=== PATIENT | female | born 1945 | race Caucasian/White ===

== ENCOUNTER 2018-03-31 12:05 | Outpatient (RCR) | payer SELFPAY | END 2018-04-03 23:59 | disposition home or self-care (01) | LOC: CR 12:05 | PROVIDERS: PCP Physician Assistant Medical; Visit Provider Family Medicine | DX: Z51.89 Encounter for other specified aftercare (principal) ==

== ENCOUNTER 2018-04-30 10:00 | Outpatient (RCR) | payer SELFPAY | END 2018-05-03 23:59 | disposition home or self-care (01) | LOC: CR 10:00 | PROVIDERS: PCP Physician Assistant Medical; Visit Provider Family Medicine | DX: Z51.89 Encounter for other specified aftercare (principal) ==

== ENCOUNTER 2018-06-02 10:00 | Outpatient (RCR) | payer SELFPAY | END 2018-06-03 23:59 | disposition home or self-care (01) | LOC: CR 10:00 | PROVIDERS: PCP Physician Assistant Medical; Visit Provider Family Medicine | DX: Z51.89 Encounter for other specified aftercare (principal) ==

== ENCOUNTER → 2018-06-09 10:55 | Outpatient (BNVA) | payer MEDICARE, OTHER, SELFPAY | PROVIDERS: PCP Physician Assistant Medical; Visit Provider Nurse Practitioner Family | DX: I48.91 Unspecified atrial fibrillation (principal); Z45.09 Encounter for adjustment and management of other cardiac device; Z95.3 Presence of xenogenic heart valve; I10 Essential (primary) hypertension; G47.33 Obstructive sleep apnea (adult) (pediatric); E78.5 Hyperlipidemia, unspecified | CPT/HCPCS: 93291; 99213 ==

== ENCOUNTER 2018-07-02 10:00 | Outpatient (RCR) | payer SELFPAY | END 2018-07-03 23:59 | disposition home or self-care (01) | LOC: CR 10:00 | PROVIDERS: PCP Physician Assistant Medical; Visit Provider Family Medicine | DX: Z51.89 Encounter for other specified aftercare (principal) ==

== ENCOUNTER 2018-07-23 10:00 | Outpatient (RCR) | payer SELFPAY | END 2018-08-03 23:59 | disposition home or self-care (01) | LOC: CR 10:00 | PROVIDERS: PCP Physician Assistant Medical; Visit Provider Family Medicine | DX: Z51.89 Encounter for other specified aftercare (principal) ==

== ENCOUNTER 2018-08-25 10:00 | Outpatient (RCR) | payer SELFPAY | END 2018-09-03 23:59 | disposition home or self-care (01) | LOC: CR 10:00 | PROVIDERS: PCP Physician Assistant Medical; Visit Provider Family Medicine | DX: Z51.89 Encounter for other specified aftercare (principal) ==

== ENCOUNTER → 2018-09-22 11:29 | Outpatient (BNVA) | payer MEDICARE, OTHER, SELFPAY | PROVIDERS: PCP Nurse Practitioner Family; Visit Provider Nurse Practitioner Family | DX: R69 Illness, unspecified (principal) ==

== ENCOUNTER 2018-09-22 12:36 | Outpatient (CLI) | payer MEDICARE, OTHER, SELFPAY ==
[2018-09-22 14:26] LABS: Anion Gap 7.3 mmol/L (3-11); BUN 21 mg/dL (7-18); CO2 29.7 mmol/L (21.0-32.0); CREATININE 1.44 mg/dL (0.55-1.02); Calcium 9.6 mg/dL (8.5-10.1); Chloride 105 mmol/L (98-107); Estimated GFR 35.88 (mL/min/1.73m2); Glucose 103 mg/dL (70-100); Magnesium 1.8 mg/dL (1.8-2.4); Potassium 5.6 mmol/L (3.5-5.1); Sodium 142 mmol/L (136-145); TSH 1.35 uIU/mL (0.358-3.74)
== END 2018-09-22 12:56 ==
PROVIDERS: PCP Nurse Practitioner Family; Visit Provider Nurse Practitioner Family
DX: I48.91 Unspecified atrial fibrillation (principal); Z95.3 Presence of xenogenic heart valve; Z95.818 Presence of other cardiac implants and grafts; I10 Essential (primary) hypertension; Z45.09 Encounter for adjustment and management of other cardiac device; E78.5 Hyperlipidemia, unspecified
CPT/HCPCS: 36415; 80048; 93291; 99214; 83735; 84443

== ENCOUNTER 2018-10-01 00:53 | Outpatient (CLI) | payer MEDICARE, OTHER, SELFPAY ==
--- NOTE | 2018-10-01 12:10 | DI.MAMMO_ITS ---
SYMPTOMS/DIAGNOSIS: SCREENING, Z12.31, [facility], Z00.00 BILATERAL SCREENING MAMMOGRAM: Mammograms were interpreted according to the usual protocol including computer analysis with CAD system, tomosynthesis and C view imaging. Comparison is made with 2009 through 2017. The breasts are composed of fatty density tissue, breast density category A. In the posterolateral right breast, there has been interval increase in size and density of a lymph node in the posterior aspect of the breast. The borders are partially obscured. An additional adjacent area of nodularity is also seen, increasing from the previous exam. There has been no change in the left breast. No suspicious calcifications are seen in either breast. IMPRESSION: Left breast category 1, negative. Right breast category 0. Spot compression views and ultrasound are requested for further evaluation of two adjacent nodules in the posterolateral right breast. [facility] ASSESSMENT OF FINDINGS: Incomplete: Needs additional imaging evaluation. Category 0. Patient will receive a letter notifying them of these results. BI-RAD category A. The breasts are almost entirely fatty.
== END 2018-10-01 01:13 ==
PROVIDERS: PCP Nurse Practitioner Family; Visit Provider Nurse Practitioner Family
DX: Z12.31 Encounter for screening mammogram for malignant neoplasm of breast (principal); R92.8 Other abnormal and inconclusive findings on diagnostic imaging of breast
CPT/HCPCS: 77063; 77067

== ENCOUNTER 2018-10-01 12:52 | Outpatient (RCR) | payer SELFPAY | END 2018-10-01 23:59 | disposition home or self-care (01) | LOC: CR 12:52 | PROVIDERS: PCP Physician Assistant Medical; Visit Provider Family Medicine | DX: Z51.89 Encounter for other specified aftercare (principal) ==

== ENCOUNTER 2018-10-06 01:18 | Outpatient (CLI) | payer MEDICARE, OTHER, SELFPAY ==
--- NOTE | 2018-10-06 11:12 | DI.COMBO_ITS ---
SYMPTOM/DIAGNOSIS: F/U MAMMO, INCREASE IN SIZE OF DENSITY, RT LYMPH NODE RIGHT BREAST ADDITIONAL VIEWS AND RIGHT BREAST ULTRASOUND: Additional images are interpreted according to the usual protocol including tomosynthesis and 2D imaging. Spot compression views with tomography were performed for an area of nodularity in the lateral right breast. There is a persistent dense nodule measuring 7 mm. in diameter. There is an adjacent nodule measuring 4 mm. which is also increased in size when compared with previous exam. The borders are not definitely well circumscribed. Right breast ultrasound shows an 8 by 5 by 8 mm., mildly lobulated, mildly heterogeneous nodule in the 8 o'clock position 6 cm. from the nipple. There is mildly increased blood flow. IMPRESSION: Category 4, suspicious mammogram and right breast ultrasound. Biopsy of the nodule in the 8 o'clock position of the right breast is recommended. The findings were called to Sandra Dow as well as discussed with the patient. [facility] ASSESSMENT OF FINDINGS: Suspicious. Biopsy should be considered. Category 4. Patient will receive a letter notifying them of these results. BI-RAD category A. The breasts are almost entirely fatty.
== END 2018-10-06 01:38 ==
PROVIDERS: PCP Nurse Practitioner Family; Visit Provider Nurse Practitioner Family
DX: Z12.31 Encounter for screening mammogram for malignant neoplasm of breast (principal); R92.8 Other abnormal and inconclusive findings on diagnostic imaging of breast; N63.13 Unspecified lump in the right breast, lower outer quadrant
CPT/HCPCS: 76642; 77063; 77067

== ENCOUNTER 2018-10-29 10:00 | Outpatient (RCR) | payer SELFPAY | END 2018-11-01 23:59 | disposition home or self-care (01) | LOC: CR 10:00 | PROVIDERS: PCP Nurse Practitioner Family; Visit Provider Family Medicine | DX: Z51.89 Encounter for other specified aftercare (principal) ==

== ENCOUNTER 2018-11-26 10:00 | Outpatient (RCR) | payer SELFPAY | END 2018-12-01 23:59 | disposition home or self-care (01) | LOC: CR 10:00 | PROVIDERS: PCP Nurse Practitioner Family; Visit Provider Family Medicine | DX: Z51.89 Encounter for other specified aftercare (principal) ==

== ENCOUNTER 2018-12-21 11:27 | Outpatient (REF) | payer MEDICARE, OTHER, SELFPAY ==
[2018-12-21 22:02] LABS: ALT 33 U/L (12-78); AST 22 U/L (15-37); Anion Gap 11.7 mmol/L (3-11); BUN 20 mg/dL (7-18); CO2 26.3 mmol/L (21.0-32.0); CREATININE 1.35 mg/dL (0.55-1.02); Chloride 106 mmol/L (98-107); Cholesterol 192 mg/dL (50-200); Estimated GFR 38.66 (mL/min/1.73m2); Glucose 113 mg/dL (70-100); HDL Cholesterol 68 mg/dL (40-60); LDL CHOLESTEROL 102 mg/dL (<100); Potassium 4.1 mmol/L (3.5-5.1); Sodium 144 mmol/L (136-145); Triglyceride 105 mg/dL (30-150)
[2018-12-21 22:16] LABS: Creatine Kinase 106 U/L (26-192)
== END 2018-12-21 11:47 ==
LOC: NCHCN 11:27
PROVIDERS: PCP Nurse Practitioner Family; Visit Provider Nurse Practitioner Family
DX: I10 Essential (primary) hypertension (principal); E78.5 Hyperlipidemia, unspecified; I48.0 Paroxysmal atrial fibrillation; D05.11 Intraductal carcinoma in situ of right breast; Z95.2 Presence of prosthetic heart valve
CPT/HCPCS: 80048; 80061; 82550; 83721; 84450; 84460

== ENCOUNTER 2018-12-31 13:33 | Outpatient (RCR) | payer SELFPAY | END 2019-01-01 23:59 | disposition home or self-care (01) | LOC: CR 13:33 | PROVIDERS: PCP Nurse Practitioner Family; Visit Provider Family Medicine | DX: Z51.89 Encounter for other specified aftercare (principal) ==

== ENCOUNTER → 2019-01-05 14:16 | Outpatient (BNVA) | payer MEDICARE, OTHER, SELFPAY | PROVIDERS: PCP Nurse Practitioner Family; Visit Provider Nurse Practitioner Family | DX: I10 Essential (primary) hypertension (principal); Z95.3 Presence of xenogenic heart valve; I48.91 Unspecified atrial fibrillation; Z45.09 Encounter for adjustment and management of other cardiac device; E78.5 Hyperlipidemia, unspecified | CPT/HCPCS: 93291; 99213 ==

== ENCOUNTER 2019-01-28 11:24 | Outpatient (RCR) | payer SELFPAY | END 2019-01-31 23:59 | disposition home or self-care (01) | LOC: CR 11:24 | PROVIDERS: PCP Nurse Practitioner Family; Visit Provider Family Medicine | DX: Z51.89 Encounter for other specified aftercare (principal) ==

== ENCOUNTER 2019-02-01 14:03 | Outpatient (RCR) | payer SELFPAY | END 2019-03-03 23:59 | disposition home or self-care (01) | LOC: CR 14:03 | PROVIDERS: PCP Nurse Practitioner Family; Visit Provider Family Medicine | DX: Z51.89 Encounter for other specified aftercare (principal) ==

== ENCOUNTER → 2019-02-16 09:43 | Outpatient (BNVA) | payer MEDICARE, OTHER, SELFPAY | PROVIDERS: PCP Nurse Practitioner Family; Visit Provider Nurse Practitioner Family | DX: I48.91 Unspecified atrial fibrillation (principal); Z95.3 Presence of xenogenic heart valve; Z45.09 Encounter for adjustment and management of other cardiac device; I10 Essential (primary) hypertension; E78.2 Mixed hyperlipidemia | CPT/HCPCS: 93291; 99213 ==

== ENCOUNTER 2019-03-04 06:13 | Outpatient (RCR) | payer SELFPAY | END 2019-04-03 23:59 | disposition home or self-care (01) | LOC: CR 06:13 | PROVIDERS: PCP Nurse Practitioner Family; Visit Provider Family Medicine | DX: Z51.89 Encounter for other specified aftercare (principal) ==

== ENCOUNTER 2019-04-04 03:53 | Outpatient (RCR) | payer SELFPAY | END 2019-05-03 23:59 | disposition home or self-care (01) | LOC: CR 03:53 | PROVIDERS: PCP Nurse Practitioner Family; Visit Provider Family Medicine | DX: Z51.89 Encounter for other specified aftercare (principal) ==

== ENCOUNTER 2019-05-04 13:24 | Outpatient (RCR) | payer SELFPAY | END 2019-06-03 23:59 | disposition home or self-care (01) | LOC: CR 13:24 | PROVIDERS: PCP Nurse Practitioner Family; Visit Provider Family Medicine | DX: Z51.89 Encounter for other specified aftercare (principal) ==

== ENCOUNTER → 2019-05-28 08:39 | Outpatient (BNVA) | payer MEDICARE, OTHER, SELFPAY | PROVIDERS: PCP Nurse Practitioner Family; Visit Provider Internal Medicine Cardiovascular Disease | DX: I48.91 Unspecified atrial fibrillation (principal); E78.2 Mixed hyperlipidemia; I10 Essential (primary) hypertension; Z95.2 Presence of prosthetic heart valve | CPT/HCPCS: 99205; 99215 ==

== ENCOUNTER 2019-05-31 14:36 | Outpatient (REF) | payer MEDICARE, OTHER, SELFPAY ==
[2019-05-31 21:18] LABS: Anion Gap 8.6 mmol/L (3-11); BUN 27 mg/dL (7-18); CO2 27.4 mmol/L (21.0-32.0); CREATININE 1.41 mg/dL (0.55-1.02); Calcium 9.5 mg/dL (8.5-10.1); Chloride 105 mmol/L (98-107); Estimated GFR 36.66 (mL/min/1.73m2); Glucose 105 mg/dL (70-100); Potassium 4.5 mmol/L (3.5-5.1); Sodium 141 mmol/L (136-145)
== END 2019-05-31 14:56 ==
LOC: NCHCN 14:36
PROVIDERS: PCP Nurse Practitioner Family; Visit Provider Nurse Practitioner Family
DX: I48.0 Paroxysmal atrial fibrillation (principal); N18.3 Chronic kidney disease, stage 3 (moderate)
CPT/HCPCS: 80048

== ENCOUNTER 2019-06-04 05:41 | Outpatient (RCR) | payer SELFPAY | END 2019-07-03 23:59 | disposition home or self-care (01) | LOC: CR 05:41 | PROVIDERS: PCP Nurse Practitioner Family; Visit Provider Family Medicine | DX: Z51.89 Encounter for other specified aftercare (principal) ==

== ENCOUNTER 2019-07-04 23:40 | Outpatient (RCR) | payer SELFPAY | END 2019-08-03 23:59 | disposition home or self-care (01) | LOC: CR 23:40 | PROVIDERS: PCP Nurse Practitioner Family; Visit Provider Family Medicine | DX: Z51.89 Encounter for other specified aftercare (principal) ==

== ENCOUNTER 2019-08-18 12:43 | Outpatient (REF) | payer MEDICARE, OTHER, SELFPAY ==
[2019-08-18 23:16] LABS: Anion Gap 11.1 mmol/L (3-11); BUN 34 mg/dL (7-18); CO2 24.9 mmol/L (21.0-32.0); CREATININE 1.54 mg/dL (0.55-1.02); Calcium 8.9 mg/dL (8.5-10.1); Chloride 106 mmol/L (98-107); Estimated GFR 33.11 (mL/min/1.73m2); Glucose 100 mg/dL (74-106); Potassium 4.4 mmol/L (3.5-5.1); Sodium 142 mmol/L (136-145)
== END 2019-08-18 13:03 ==
LOC: NCHCN 12:43
PROVIDERS: PCP Nurse Practitioner Family; Visit Provider Nurse Practitioner Family
DX: N18.3 Chronic kidney disease, stage 3 (moderate) (principal)
CPT/HCPCS: 80048

== ENCOUNTER 2019-09-02 09:00 | Outpatient (RCR) | payer SELFPAY | END 2019-09-03 23:59 | disposition home or self-care (01) | LOC: CR 09:00 | PROVIDERS: PCP Nurse Practitioner Family; Visit Provider Family Medicine | DX: Z51.89 Encounter for other specified aftercare (principal) ==

== ENCOUNTER 2019-09-28 10:00 | Outpatient (RCR) | payer SELFPAY | END 2019-10-02 23:59 | disposition home or self-care (01) | LOC: CR 10:00 | PROVIDERS: PCP Nurse Practitioner Family; Visit Provider Family Medicine | DX: Z51.89 Encounter for other specified aftercare (principal) ==

== ENCOUNTER 2019-10-07 11:19 | Outpatient (RCR) | payer SELFPAY | END 2019-11-02 23:59 | disposition home or self-care (01) | LOC: CR 11:19 | PROVIDERS: PCP Nurse Practitioner Family; Visit Provider Family Medicine | DX: Z51.89 Encounter for other specified aftercare (principal) ==

== ENCOUNTER 2019-10-08 03:04 | Outpatient (CLI) | payer MEDICARE, OTHER, SELFPAY ==
--- NOTE | 2019-10-08 | DI.US_ITS ---
EXAM: US RENAL CLINICAL HISTORY: CALCIUM UROLITHIASIS, N20.9, INCREASING CREATININE TECHNIQUE: Ultrasound performed using standard protocol. COMPARISON: RENAL ULTRASOUND(P) from 06/18/2017 FINDINGS: The right kidney measures 8.7 cm in length. The left kidney measures 9.1 cm in length. There is no hydronephrosis of either kidney. There 2 small nonobstructing stones seen near the lower pole of the left kidney, the larger measuring 7 millimeters. The prevoid bladder volume measured 174 cc. Both ureteral jets were visualized. The bladder wall appears smooth. There was no postvoid residual in t he bladder. IMPRESSION: Nonobstructing stones at the lower pole of the left kidney. No hydronephrosis. DATA REPOSITORY:
== END 2019-10-08 03:24 ==
PROVIDERS: PCP Nurse Practitioner Family; Visit Provider Internal Medicine Nephrology
DX: N20.0 Calculus of kidney (principal); R79.89 Other specified abnormal findings of blood chemistry
CPT/HCPCS: 76770

== ENCOUNTER → 2019-11-25 13:01 | Outpatient (BNVA) | payer MEDICARE, OTHER, SELFPAY | PROVIDERS: PCP Nurse Practitioner Family; Referring Provider Nurse Practitioner Family; Visit Provider Internal Medicine Cardiovascular Disease | DX: I48.91 Unspecified atrial fibrillation (principal); E78.2 Mixed hyperlipidemia; I10 Essential (primary) hypertension; Z95.3 Presence of xenogenic heart valve | CPT/HCPCS: 99214; 99443 ==

== ENCOUNTER 2019-12-20 08:49 | Outpatient (REF) | payer MEDICARE, OTHER, SELFPAY ==
[2019-12-20 19:37] LABS: Calculated LDL 94 mg/dL (<100); Cholesterol 168 mg/dL (<200); Glucose 100 mg/dL (74-106); HDL Cholesterol 58 mg/dL (40-60); Triglyceride 81 mg/dL (<150)
== END 2019-12-20 09:09 ==
LOC: NCHCN 08:49
PROVIDERS: PCP Nurse Practitioner Family; Visit Provider Nurse Practitioner Family
DX: E78.5 Hyperlipidemia, unspecified (principal); N18.3 Chronic kidney disease, stage 3 (moderate)
CPT/HCPCS: 80061; 82947

== ENCOUNTER → 2020-01-19 13:30 | Outpatient (BNVA) | payer MEDICARE, OTHER, SELFPAY | PROVIDERS: PCP Nurse Practitioner Family; Referring Provider Nurse Practitioner Family; Visit Provider Physician Assistant | DX: I48.91 Unspecified atrial fibrillation (principal); Z45.09 Encounter for adjustment and management of other cardiac device | CPT/HCPCS: 93285; 99211; 99213 ==

== ENCOUNTER 2020-03-29 11:25 | Outpatient (REF) | payer MEDICARE, OTHER, SELFPAY ==
[2020-03-29 21:40] LABS: Abs Immature Grans 0.01 10^3/uL (0.0-0.06); Absolute Basophil Count 0.03 10^3/uL (0.0-0.2); Absolute Eosinophil Count 0.12 10^3/uL (0.0-0.7); Absolute Lymphocyte Count 1.47 10^3/uL (1.2-3.4); Absolute Monocyte Count 0.74 10^3/uL (0.1-0.8); Basophils % 0.4; Eosinophils % 1.7; HCT 46.8 % (36.0-46.0); HGB 15.5 g/dL (11.2-15.7); Immature Grans % 0.1; Lymphocytes % 20.2; MCH 31.3 pg (27.0-33.0); MCHC 33.1 % (32.0-36.0); MCV 94.4 fL (80-95); MPV 10.7 fL (8.0-11.0); Monocytes % 10.2; Neutrophils % 67.4; Nucleated RBC 0 %; Platelet Count 159 10^3/uL (130-400); RBC 4.96 10^6/uL (3.93-5.22); RDW 12.5 % (11.7-14.6); RDW-SD 43.3 fL; WBC 7.27 10^3/uL (4.4-10.8)
[2020-03-29 21:47] LABS: Anion Gap 12.9 mmol/L (3-11); BUN 19 mg/dL (7-18); CO2 24.1 mmol/L (21.0-32.0); CREATININE 1.21 mg/dL (0.55-1.02); Calcium 9.1 mg/dL (8.5-10.1); Chloride 105 mmol/L (98-107); Estimated GFR 43.74 (mL/min/1.73m2); Glucose 106 mg/dL (74-106); Potassium 4.1 mmol/L (3.5-5.1); Sodium 142 mmol/L (136-145)
[2020-03-29 21:55] LABS: Bacteria Negative HPF (Negative); C & S Indicated? No; Casts Negative LPF (Negative); Crystals Negative HPF (Negative); Epithelial Cells Negative HPF (Negative); Mucus Negative (Negative); Other Cells Negative (Negative); RBC 0-2 HPF (0-2)
== END 2020-03-29 11:45 ==
LOC: NCHCN 11:25
PROVIDERS: PCP Nurse Practitioner Family; Visit Provider Nurse Practitioner Family
DX: I10 Essential (primary) hypertension (principal); N18.3 Chronic kidney disease, stage 3 (moderate); Z79.01 Long term (current) use of anticoagulants
CPT/HCPCS: 80048; 81015; 85025

== ENCOUNTER → 2020-05-23 10:36 | Outpatient (BNVA) | payer MEDICARE, OTHER, SELFPAY | PROVIDERS: PCP Nurse Practitioner Family; Referring Provider Nurse Practitioner Family; Visit Provider Internal Medicine Cardiovascular Disease | DX: I48.91 Unspecified atrial fibrillation (principal); I10 Essential (primary) hypertension; G47.33 Obstructive sleep apnea (adult) (pediatric); Z95.3 Presence of xenogenic heart valve; Z95.818 Presence of other cardiac implants and grafts; Z79.01 Long term (current) use of anticoagulants | CPT/HCPCS: 99214 ==

== ENCOUNTER 2020-06-26 10:47 | Outpatient (REF) | payer MEDICARE, OTHER, SELFPAY ==
[2020-07-31 11:25] LABS: Specimen Description See Comments
== END 2020-06-26 11:07 ==
LOC: NCHCN 10:47
PROVIDERS: PCP Nurse Practitioner Family; Visit Provider Nurse Practitioner Family
DX: B35.1 Tinea unguium (principal); L60.0 Ingrowing nail
CPT/HCPCS: 87101; 87206

== ENCOUNTER 2020-07-05 14:47 | Outpatient (REF) | payer MEDICARE, OTHER, SELFPAY ==
[2020-07-05 21:09] LABS: Bacteria Few HPF (Negative); C & S Indicated? C&S Done As Ordered; Crystals Negative HPF (Negative); Epithelial Cells Few HPF (Negative); Mucus Negative (Negative)
== END 2020-07-05 15:07 ==
LOC: NCHCN 14:47
PROVIDERS: PCP Nurse Practitioner Family; Visit Provider Nurse Practitioner Family
DX: R39.15 Urgency of urination (principal)
CPT/HCPCS: 81015; 87086

== ENCOUNTER 2020-07-12 01:09 | Outpatient (CLI) | payer MEDICARE, OTHER, SELFPAY ==
--- NOTE | 2020-07-12 | DI.US_ITS ---
EXAM: US RENAL CLINICAL HISTORY: URGENCY,R39.15,H/O NEPHROLITHIASIS,Z87.442,DECREASED URINARY SYNDROME. TECHNIQUE: Watkins scale, color and spectral Doppler were used. COMPARISON: US US RENAL from 10/08/2019 FINDINGS: Right kidney measures 9 centimeters in length left kidney measures 8.4 centimetres in length. At the midpole level of the left kidney there is a small 4 millimeter echogenic focus which is possib ly a nonobstructive calculus. There are no other focal findings in the kidneys evident on these imag es. No perinephric fluid Urinary bladder: Prevoid volume 93 cc. Postvoid volume is 0/negligible. Both ureterovesical jets ar e identified. No obvious bladder mass evident on these images. IMPRESSION: 1. Possible small nonobstructive calculus in the left kidney. No other obvious focal renal findings. 2. Bladder empties completely. No obvious bladder mass. DATA REPOSITORY:
== END 2020-07-12 01:29 ==
PROVIDERS: PCP Nurse Practitioner Family; Visit Provider Nurse Practitioner Family
DX: R39.15 Urgency of urination (principal); Z87.442 Personal history of urinary calculi
CPT/HCPCS: 76770

== ENCOUNTER 2020-07-13 21:18 | Outpatient (REF) | payer MEDICARE, OTHER, SELFPAY | END 2020-07-13 21:38 | LOC: NCHCN 21:18 | PROVIDERS: PCP Nurse Practitioner Family; Visit Provider Nurse Practitioner Family | DX: R39.15 Urgency of urination (principal) | CPT/HCPCS: 87086 ==

== ENCOUNTER → 2020-07-19 08:40 | Outpatient (BNVA) | payer MEDICARE, OTHER, SELFPAY | PROVIDERS: PCP Nurse Practitioner Family; Referring Provider Nurse Practitioner Family; Visit Provider Physician Assistant | DX: I48.91 Unspecified atrial fibrillation (principal); Z45.09 Encounter for adjustment and management of other cardiac device; I10 Essential (primary) hypertension; Z79.01 Long term (current) use of anticoagulants | CPT/HCPCS: 93285; 99211 ==

== ENCOUNTER 2020-08-21 18:07 | Outpatient (REF) | payer MEDICARE, OTHER, SELFPAY ==
[2020-08-21 15:52] LABS: Anion Gap 9.4 mmol/L (3-11); BUN 21 mg/dL (7-18); CO2 26.6 mmol/L (21.0-32.0); CREATININE 1.39 mg/dL (0.55-1.02); Calcium 9.1 mg/dL (8.5-10.1); Chloride 105 mmol/L (98-107); Estimated GFR 37.17 (mL/min/1.73m2); Glucose 111 mg/dL (74-106); Potassium 4.1 mmol/L (3.5-5.1); Sodium 141 mmol/L (136-145)
== END 2020-08-21 18:27 ==
LOC: NCHCN 18:07
PROVIDERS: PCP Nurse Practitioner Family; Visit Provider Nurse Practitioner Family
DX: I48.0 Paroxysmal atrial fibrillation (principal)
CPT/HCPCS: 80048

== ENCOUNTER 2020-08-30 13:16 | Emergency (ER) | payer MEDICARE, OTHER, SELFPAY ==
[2020-08-30] VITALS (10 sets, daily range): BP systolic 162–209; BP diastolic 60–98; PULSE 59–71; RESP 18–20; TEMP 36.6–37.1; O2SAT 96–98
--- NOTE | 2020-08-30 13:15 | DI.CT_ITS ---
EXAM: CT ABDOMEN PELVIS WO CLINICAL HISTORY: RLQ pain, r/o stone/appe. TECHNIQUE: Imaging Protocol: Axial computed tomography images with coronal and sagittal reformatted images were created and reviewed. Oral: yes / no COMPARISON: CT RENAL COLIC WO CONTRAST from 01/15/2010 CT RENAL COLIC WO CONTRAST from 01/15/2010 CR CHEST 2 VIEWS PA,LAT from 05/27/2016 CR CHEST 2 VIEWS PA,LAT from 05/27/2016 US US RENAL from 07/12/2020 FINDINGS: Sternal wires are noted. The previous surgery on the right breast. The lung bases show mild depende nt changes. The heart appears enlarged. Patient is status post cholecystectomy. There is no biliar y dilatation. The liver, spleen, pancreas, adrenals and adrenals are unremarkable. There is a nonobstructing stone near the lower pole of the left kidney. There is moderate right hydr onephrosis. There is mild right perinephric stranding. The right ureter is dilated down to just abo ve the ureteral vesicle junction where there is a stone measuring 4 millimeters. The bladder, uterus and right ovary are unremarkable. There is enlargement of the left ovary, measur ing 3.4 by 2.5 cm appendix appears normal. There is mild diverticulosis of the descending colon. Th ere is no diverticulitis, bowel wall thickening or abnormal dilatation. There is a small hiatal justin ia. The aorta is normal in diameter and shows mild calcification. There are degenerative disc paz es greatest at L4-5 and L5-S1. There are no compression fractures. IMPRESSION: Moderate right hydronephrosis secondary to a 4 millimeter stone above the ureterovesical junction. N onobstructing stone near the lower pole of the left kidney. Left ovarian enlargement. Pelvic ultrasound could be considered for further evaluation. RADIATION DOSE DELIVERED: 1,265.28mGy.cm Total DLP DATA REPOSITORY: All CT scans at this facility are submitted to the National Radiology Data Registry (NRDR) Dose Index Registry (DIR) with the [employer] (A[employer]). RADIATION OPTIMIZATION: All CT scans at this facility use at least one of these dose optimization te chniques: automated exposure control; mA and/or kV adjustment per patient size (includes targeted exa ms where dose is matched to clinical indication); or iterative reconstruction.
--- NOTE | 2020-08-30 13:31 | ED.GENADUL_ITS ---
Discharge Plan Disposition Patient Disposition: HOME Condition: Good Discharge Details Clinical Impression: Kidney stone Primary Care Provider: Sandra Dow ED Provider: Jr Arizmendi Home Meds and New Rx's Prescriptions: New tamsulosin [Flomax] 0.4 mg capsule 0.4 mg PO DAILY Qty: 5 RF: 0 Continued simvastatin 10 mg tablet 10 mg PO QPM RF: 0 cholecalciferol (vitamin D3) 1,000 unit capsule 1,000 unit PO DAILY RF: 0 ascorbate calcium (vitamin C) 500 mg tablet 500 mg PO DAILY RF: 0 metoprolol succinate 25 mg tablet extended release 24 hr 50 mg PO DAILY Qty: 180 RF: 3 diltiazem HCl 120 mg capsule,extended release 24 hr 120 mg PO DAILY Qty: 90 RF: 3 warfarin 2.5 mg tablet 2.5 mg PO DAILY RF: 0 multivitamin [Daily Value] 1 EACH tablet 1 ea PO DAILY RF: 0 acetaminophen [Acetaminophen Extra Strength] 500 mg tablet 500 mg PO BID RF: 0 nitrofurantoin monohyd/m-cryst [Macrobid] 100 mg capsule 100 mg PO BID Qty: 10 RF: 0 amoxicillin 500 mg capsule 2,000 mg PO DAILY PRNRF: 0 meclizine 25 mg tablet 25 mg PO Q6H PRNRF: 0 Discharge Instructions Instructions: Kidney Stones (ED) Additional Instructions: At this time you have a small kidney stone at the very end of your ureter. It is likely to pass soon. Please take the Flomax if you are still having pain. Continue your Tylenol, and take a [place] pill only as needed for breakthrough pain. The [place] pill does have Tylenol in it so I do not recommend taking Tylenol with the [place] pill. Please drink plenty of fluids, take a cranberry concentrate to help decrease the likelihood of potential infection. If you notice any worsening of your symptoms, or any new symptoms such as vomiting, diarrhea, fever, chills, shortness of breath, chest pain, numbness, weakness, or fainting , please return immediately to the emergency department for reevaluation. Please follow up with your primary care provider as soon as possible for reassessment and reevaluation. As always, it was a pleasure participating in your medical care today. Referrals: Sandra Dow [Primary Care Provider] - Medical Decision Making 75-year-old female with a past medical history of aortic valve replacement, cholecystectomy, A. fib on warfarin, previous kidney stones presents today for right lower quadrant pain. Patient states that 3 weeks ago she had urinary frequency and urgency, as well as some mild right lower quadrant pain. Those symptoms all resolved on their own until they returned suddenly today, which she describes as a sharp stabbing pain in her right lower quadrant. She denies any hematuria, or urinary frequency now. She denies any flank pain. She states that this feels notably different than previous kidney stones. She denies any vomiting but does admit to an episode of loose stool. She denies any melena. No other complaints at this time. No other modifying factors. Physical exam demonstrates a nonsurgical appearing abdomen, mild right lower quadrant and suprapubic tenderness. Differential includes appendicitis, more atypical kidney stone. Will give NSAIDs, get CT scan, gently rehydrate monitor closely and reassess. 3:21 PM Patient's pain is resolved with NSAIDs and morphine. CT scan shows evidence of a 4 mm stone at the right ureterovesicular junction. INR is 1.9. Urinalysis shows blood but no evidence of infection. We have given a dose of Flomax. With pain notably resolved, the stone being distal, and no signs of infection feel the patient be discharged. Discussed red flags which return. I have extensively reviewed the treatment plan and discharge instructions with the patient. I have addressed all patient concerns at this time. The patient was made aware of what symptoms to monitor for that would warrant a return to the emergency department. Discussed the plan with the patient, they demonstrate verbal understanding and agreement with our assessment and plan at this time. FINDINGS: Sternal wires are noted. The previous surgery on the right breast. The lung bases show mild dependent changes. The heart appears enlarged. Patient is status post cholecystectomy. There is no biliary dilatation. The liver, spleen, pancreas, adrenals and adrenals are unremarkable. There is a nonobstructing stone near the lower pole of the left kidney. There is moderate right hydronephrosis. There is mild right perinephric stranding. The right ureter is dilated down to just above the ureteral vesicle junction where there is a stone measuring 4 millimeters. The bladder, uterus and right ovary are unremarkable. There is enlargement of the left ovary, measuring 3.4 by 2.5 cm appendix appears normal. There is mild diverticulosis of the descending colon. There is no diverticulitis, bowel wall thickening or abnormal dilatation. There is a small hiatal hernia. The aorta is normal in diameter and shows mild calcification. There are degenerative disc changes greatest at L4-5 and L5-S1. There are no compression fractures. IMPRESSION: Moderate right hydronephrosis secondary to a 4 millimeter stone above the ureterovesical junction. Nonobstructing stone near the lower pole of the left kidney. Left ovarian enlargement. Pelvic ultrasound could be considered for further evaluation. HPI General Date/Time Provider Initiated Documentation: 08/30/20 13:21 . HPI Narrative: 75-year-old female with a past medical history of aortic valve replacement, A. fib on warfarin, previous kidney stones presents today for right lower quadrant pain. Patient states that 3 weeks ago she had urinary frequency and urgency, as well as some mild right lower quadrant pain. Those symptoms all resolved on their own until they returned suddenly today, which she describes as a sharp stabbing pain in her right lower quadrant. She denies any hematuria, or urinary frequency now. She denies any flank pain. She states that this feels notably different than previous kidney stones. She denies any vomiting but does admit to an episode of loose stool. She denies any melena. No other complaints at this time. No other modifying factors. Related Data Home Medications Medication Instructions Recorded Confirmed multivitamin [Daily Value] 1 ea PO DAILY 03/28/15 08/30/20 simvastatin 10 mg tablet 10 mg PO QPM 06/09/18 08/30/20 metoprolol succinate 25 mg 50 mg PO DAILY #180 tab 09/22/18 08/30/20 tablet,extended release 24 hr diltiazem HCl 120 mg capsule,24 120 mg PO DAILY #90 cap 09/24/18 08/30/20 hr,extended release ascorbate calcium (vitamin C) 500 500 mg PO DAILY 05/28/19 08/30/20 mg tablet cholecalciferol (vitamin D3) 25 1,000 unit PO DAILY 05/28/19 08/30/20 mcg (1,000 unit) capsule acetaminophen 500 mg tablet 500 mg PO BID tab-cap 11/25/19 08/30/20 warfarin 2.5 mg tablet 2.5 mg PO DAILY tab 01/19/20 08/30/20 nitrofurantoin 100 mg PO BID #10 cap 07/07/20 monohydrate/macrocrystals 100 mg capsule amoxicillin 500 mg capsule 2,000 mg PO DAILY PRN cap 07/24/20 08/30/20 meclizine 25 mg tablet 25 mg PO Q6H PRN tab 07/24/20 08/30/20 tamsulosin [Flomax] 0.4 mg PO DAILY #5 cap 08/30/20 Previous Rx's Medication Instructions Recorded metoprolol succinate 25 mg 50 mg PO DAILY #180 tab 09/22/18 tablet,extended release 24 hr diltiazem HCl 120 mg capsule,24 120 mg PO DAILY #90 cap 09/24/18 hr,extended release nitrofurantoin 100 mg PO BID #10 cap 07/07/20 monohydrate/macrocrystals 100 mg capsule tamsulosin [Flomax] 0.4 mg PO DAILY #5 cap 08/30/20 Allergies Allergy/AdvReac Type Severity Reaction Status Date / Time No Known Allergies Allergy Unverified 08/30/20 13:32 General Stated Complaint: Abd Prob TINA: 3 Review of Systems All systems reviewed & are unremarkable except as noted in HPI and below PFSH Medical History Aortic stenosis Atrial fibrillation Atrial fibrillation, transient Blood in urine CKD (chronic kidney disease), stage III Encounter for loop recorder check Medtronic LINQ Hemorrhoids HTN (hypertension) Hx of rheumatic fever Left ventricular hypertrophy Onychomycosis RLS (restless legs syndrome) Status post placement of implantable loop recorder ILR - Medtr[employer] Subungual hematoma Urgency of urination Surgical History Cholecystectomy Colonoscopy - [facility] (01/03/17) H/O aortic valve replacement History of lumpectomy of right breast (~11/2018) Replacement of aortic valve 04/2016 Tonsillectomy and adenoidectomy Social History Smoking/Tobacco Use Status: Never Smoking risk assessment performed?: Yes Alcohol Intake: current Alcohol Intake frequency: 0-2 drinks per day Alcohol type: wine Details: rare drink- Drug use: Never What type of physical activity do you participate in: walking Duration: < 15 minutes/day Frequency: 1-2 times per week Do you feel safe at home: Yes Do you feel safe in your relationship?: Yes Exam Narrative Exam Narrative: 1.Const: Well-nourished, Well-developed, appearing stated age 2.Eyes: PERRL, no conjunctival injection, and symmetrical lids. 3.ENT: Atraumatic external nose and ears. Moist MM. Neck: Symmetric, trachea midline, No thyromegaly. 4.CVS: +S1/S2, Notable murmur. Peripheral pulses 2+ and equal in all e xtremities. Brisk capillary refill in all extremities. 5.RESP: Unlabored respiratory effort. Clear to auscultation bilaterally. No wheezes rales or rhonchi 6.GI: Soft, Nontender/Nondistended, No hepatosplenomegaly. No guarding or rebound. No flank or CVA tenderness, mild right lower quadrant pain on palpation of the right lower quadrant, mild suprapubic pain. 7.MSK: Normocephalic/Atraumatic, Extremities w/o deformity or ttp No cyanosis or clubbing, Normal movement of all extremities 8.Skin: Warm, Dry. No rashes or lesions. 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 Sensation grossly intact, no focal neurologic deficits. 10.Psych: (AAO) x3. Appropriate mood and affect Course Vital Signs Vital signs: Vital Signs Temperature 36.6 C 08/30/20 13:26 Pulse 66 08/30/20 13:26 Respiratory Rate 20 08/30/20 13:26 Blood Pressure 209/98 H 08/30/20 13:26 Pulse Oximetry 96 08/30/20 13:26 Temperature 36.6 C 08/30/20 13:26 Pulse 66 08/30/20 13:26 Respiratory Rate 20 08/30/20 13:26 Blood Pressure 209/98 H 08/30/20 13:26 Blood Pressure Position Sitting 08/30/20 13:26 Pulse Oximetry 96 08/30/20 13:26 Oxygen Delivery Method Room Air 08/30/20 13:26 Oxygen Flow Rate 0 08/30/20 13:26 Pain Level 6 08/30/20 13:26
[2020-08-30 13:35] LABS: Bilirubin Negative (Negative); Blood Trace-intact (Negative); Clarity Clear (Clear); Glucose Negative (Negative); Ketones Negative (Negative); Leukocyte Esterase Negative (Negative); Nitrite Negative (Negative); Specific Gravity >= 1.030 (1.005-1.025); Urobilinogen 0.2 EU/dL (Up TO 0.2)
--- OUTSIDE RECORDS SUMMARY | 2020-08-30 13:36 | XMS_ITS ---
:1945 Author Care Team Providers Name Role Phone DR. DENIZ POSADAS Primary Care Provider [phone] DR. DENIZ POSADAS Referring Provider [phone] TIANA BOYD Primary Care Provider [phone] TIANA BOYD Referring Provider [phone] DENIZ POSADAS APRN Primary Care Provider [phone] Allergies Code Code System Name Reaction Severity Status Onset NKDA ? Medications Name Status Start Date Stop Date ? ? Asprin Ec Low Dose 81 mg tablet,delayed release Completed ? 05/16/2020 Take 1 tablet every day by oral route. diltiazem 120 mg tablet Active ? Not avai lable Take 1 tablet 3 times a day by oral route. lisinopril Completed ? 05/16/2020 metoprolol tartrate 25 mg tablet Active ? Not available Take 1 tablet twice a day by oral route. Multi Vitamin Active ? Not available simvastatin Active ? Not available Vitamin C 1,000 mg tablet Active ? Not av ailable Take by oral route. vitamin D3 2,000 unit-folic acid 1 mg tablet Active ? Not available Take by oral route. warfarin Active ? Not available zolpidem 5 mg tablet Completed 10/14/2016 11/26/2016 1 (one) Tablet: take 1 tab night of sleep study, may repeat x 1 Problems Name Status Onset Date Source ? Obstructive Sleep Apnea Syndrome Active ? History Restless Legs Active ? History Aortic Stenosis, Non-rheumatic Active ? H istory Atrial Fibrillation Active ? History Joint Pain Active ? History Procedures None recorded. Results Lab Results None recorded. Past Encounters 05/16/2020 Obstructive Sleep Apnea Syndrome; Restle ss Legs Sydney Edwards [employer]: [address] [place] [address], [place] [address], Ph. Social History Tobacco Smoking Status Never Smoker Vaccine List None recorded. Plan of Care Reminders Provider Appointments None ? ? recorded. Lab None ? ? recorded. Referral None ? ? recorded. Procedures None ? ? recorded. Surgeries None ? ? recorded. Imaging None ? ? recorded. Vitals 05/16/2020 12:30PM Office 30 Height Weight BMI Blood Pressure 162.56 cm 99.06 kg 37.5 kg/m2 120/68 mm[Hg] 05/12/2017 Height Weight Blood Pressure 162.56 cm 92.71 kg 124/76 mm[Hg] 02/10/2017 Height Weight Blood Pressure 162.56 cm 90.26 kg 122/80 mm[Hg] 11/26/2016 Height Blood Pressure 162.56 cm 126/78 mm[Hg] 08/06/2016 Height Weight Blood Pressure 162.56 cm 83.72 kg 124/76 mm[Hg]
[2020-08-30 13:51] LABS: Bacteria Rare HPF (Negative); C & S Indicated? No; Casts Negative LPF (Negative); Crystals Negative HPF (Negative); Epithelial Cells Rare HPF (Negative); Mucus Trace (Negative); Other Cells Negative (Negative); WBC 0-2 HPF (0-5)
[2020-08-30] MEDS: Ketorolac 30 MG/ML VIAL IVP (13:57)
[2020-08-30] MEDS: Acetaminophen 500 MG TAB 1000 MG PO (13:57)
[2020-08-30] MEDS: Normal Saline 1,000 ML 1000 ML IV (14:00)
[2020-08-30 14:11] LABS: Abs Immature Grans 0.02 10^3/uL (0.0-0.06); Absolute Basophil Count 0.04 10^3/uL (0.0-0.2); Absolute Eosinophil Count 0.11 10^3/uL (0.0-0.7); Absolute Lymphocyte Count 1.26 10^3/uL (1.2-3.4); Absolute Monocyte Count 0.54 10^3/uL (0.1-0.8); Absolute Neutrophil Count 4.07 10^3/uL (1.2-6.7); Basophils % 0.7; Eosinophils % 1.8; HCT 46.3 % (36.0-46.0); HGB 15.6 g/dL (11.2-15.7); Immature Grans % 0.3; Lymphocytes % 20.9; MCH 31.6 pg (27.0-33.0); MCHC 33.7 % (32.0-36.0); MCV 93.9 fL (80-95); MPV 9.8 fL (8.0-11.0); Monocytes % 8.9; Neutrophils % 67.4; Nucleated RBC 0 %; Platelet Count 148 10^3/uL (130-400); RBC 4.93 10^6/uL (3.93-5.22); RDW 12.8 % (11.7-14.6); RDW-SD 44.1 fL; WBC 6.04 10^3/uL (4.4-10.8)
[2020-08-30 14:23] LABS: ALT 34 U/L (14-59); AST 25 U/L (15-37); Albumin 3.8 g/dL (3.4-5.0); Alkaline Phosphatase 115 U/L (46-116); Anion Gap 5.4 mmol/L (3-11); BUN 18 mg/dL (7-18); Bilirubin, Total 0.4 mg/dL (0.2-1.0); CO2 28.6 mmol/L (21.0-32.0); CREATININE 1.45 mg/dL (0.55-1.02); Calcium 9.4 mg/dL (8.5-10.1); Chloride 105 mmol/L (98-107); Glucose 131 mg/dL (74-106); Potassium 3.6 mmol/L (3.5-5.1); Sodium 139 mmol/L (136-145); Total Protein 7.6 g/dL (6.4-8.2)
[2020-08-30 14:35] LABS: INR 1.9 (0.9-1.1); PTT Activated 36.5 sec (21.0-27.5); Prothrombin Time 18.4 sec (9.3-11.0)
[2020-08-30] MEDS: Tamsulosin 0.4 MG CAPCR PO (14:57)
== END 2020-08-30 15:35 | disposition home or self-care (01) ==
PROVIDERS: Emergency Provider Student in an Organized Health Care Education/Training Program; PCP Nurse Practitioner Family
DX: N13.2 Hydronephrosis with renal and ureteral calculous obstruction (principal); R93.5 Abnormal findings on diagnostic imaging of other abdominal regions, including retroperitoneum; Z87.442 Personal history of urinary calculi
CPT/HCPCS: 36415; 80053; 96361; 96374; 96375; 99284; 74176; 81003; 81015; 85025; 85610; 85730; J1885

== ENCOUNTER 2020-08-31 16:31 | Outpatient (REF) | payer MEDICARE, OTHER, SELFPAY ==
[2020-08-31 16:39] LABS: Bacteria Few HPF (Negative); C & S Indicated? C&S Done As Ordered; Casts Negative LPF (Negative); Crystals Negative HPF (Negative); Epithelial Cells Few HPF (Negative); Mucus Negative (Negative)
== END 2020-08-31 16:51 ==
LOC: NCHCN 16:31
PROVIDERS: PCP Nurse Practitioner Family; Visit Provider Nurse Practitioner Family
DX: R30.0 Dysuria (principal)
CPT/HCPCS: 81015; 87086

== ENCOUNTER 2020-09-14 01:13 | Outpatient (CLI) | payer MEDICARE, OTHER, SELFPAY ==
--- NOTE | 2020-09-14 | DI.DEXA_ITS ---
EXAM: XR DEXA BONE DENSITY W/WO JEANNETTE CLINICAL HISTORY: SCREENING FOR OSTEOPOROSIS IN POSTMENOPAUSAL WOMAN,Z78.0 TECHNIQUE: [employer] C densitometer. The L1 through L4 vertebral bodies, left hip and left fo rearm were analyzed. COMPARISON: 2006 FINDINGS: The lateral view of the thoracic and lumbar spine shows no evidence of compression fractures. The bone mineral density measurements of the lumbar spine correspond to a total T-score of -0.8, in t he normal range. There has been a 3.5 percent decrease in total bone mineral density when compared w ith 2006.. Bone mineral density measurements of the left hip correspond to a total T-score of -1.8 and femoral n karina T-score of -1.9, in the osteopenic range. This represents a 3.9 percent decrease when compared w ith 2006. The bone mineral density measurements of the left forearm correspond to a total T-score of -1.4 and T -score of the distal 3rd of -1.1, in the osteopenic range. The forearm was not analyzed on the previ ous exam. IMPRESSION: Osteopenia of the left forearm and left hip. Normal bone mineral density of the lumbar spine.
== END 2020-09-14 01:14 ==
LOC: DI 01:14
PROVIDERS: PCP Nurse Practitioner Family; Visit Provider Nurse Practitioner Family
DX: Z78.0 Asymptomatic menopausal state (principal); M85.89 Other specified disorders of bone density and structure, multiple sites
CPT/HCPCS: 77080

== ENCOUNTER → 2020-09-19 12:42 | Outpatient (BNVA) | payer MEDICARE, OTHER, SELFPAY | PROVIDERS: PCP Nurse Practitioner Family; Referring Provider Nurse Practitioner Family; Visit Provider Nurse Practitioner Gerontology | DX: N20.0 Calculus of kidney (principal); R31.29 Other microscopic hematuria; I10 Essential (primary) hypertension | CPT/HCPCS: 81003; 99215 ==

== ENCOUNTER 2020-09-25 17:26 | Outpatient (REF) | payer MEDICARE, OTHER, SELFPAY ==
[2020-09-29 20:54] LABS: Source: Passed Stone
== END 2020-09-25 17:27 | disposition home or self-care (01) ==
LOC: LBN 17:26
PROVIDERS: PCP Nurse Practitioner Family; Visit Provider Nurse Practitioner Gerontology
DX: N20.0 Calculus of kidney (principal)
CPT/HCPCS: 82365

== ENCOUNTER 2020-09-28 01:42 | Outpatient (CLI) | payer MEDICARE, OTHER, SELFPAY ==
--- NOTE | 2020-09-28 06:45 | DI.US_ITS ---
EXAM: US RENAL CLINICAL HISTORY: monitoring hydronephrosis,KIDNEY STONE,N20.0 TECHNIQUE: Ultrasound of both kidneys performed using standard protocol. COMPARISON: CT CT ABDOMEN PELVIS WO from 08/30/2020 FINDINGS: RIGHT KIDNEY: Measures 9 cm in length. There is mild hydronephrosis. This most probably related to the calculus se en in the lower right ureter on the recent CT scan. There is also a 3 millimeter cortical hyperechoi c focus towards the lower pole of the right kidney which probably a small nonobstructive calculus at this level. There are no calculi evident in the renal pelvis seen on ultrasound. Normal cortical th ickness and corticomedullary differentiation .No solid masses No intrarenal calculi nor hydronephrosis. LEFT KIDNEY: Measures 9.6 cm in length. No cysts evident. Normal cortical thickness and corticomedullary differen tiaion. No solids masses. There is a 4 millimeter calculus in the lower pole region, nonobstructive. URINARY BLADDER: Prevoid volume is 106 cc Postvoid volume is 3 cc No evidence of bladder mass nor diverticuli. Ureterovesical jets: Both ureterovesical jets are identified. IMPRESSION: 1. Nonobstructive solitary calculus in each kidney. There is slight dilatation right collecting sys tem which most probably is related to the calculus which was present in the lower right ureter on the recent CT scan of 08/30/2019 2. The right ureterovesical jet appears unremarkable which means that the calculus is has either pas sed or is nonobstructive. DATA REPOSITORY:
== END 2020-09-28 01:43 ==
LOC: DI 01:42
PROVIDERS: PCP Nurse Practitioner Family; Visit Provider Nurse Practitioner Gerontology
DX: N20.0 Calculus of kidney (principal)
CPT/HCPCS: 76770

== ENCOUNTER → 2020-10-02 10:02 | Outpatient (BNVA) | payer MEDICARE, OTHER, SELFPAY | PROVIDERS: PCP Nurse Practitioner Family; Referring Provider Nurse Practitioner Family; Visit Provider Nurse Practitioner Gerontology | DX: N20.0 Calculus of kidney (principal) | CPT/HCPCS: 81003; 99213 ==

== ENCOUNTER 2020-11-13 02:02 | Outpatient (CLI) | payer MEDICARE, OTHER, SELFPAY ==
--- NOTE | 2020-11-13 13:32 | DI.US_ITS ---
APPROVED REPORT EXAM: Comprehensive 2D, Doppler, and color-flow Echocardiogram Patient Location: Out-Patient [employer] Professor: Sharee Jaramillo RDCS (AE) Indications: Bioprosthetic Aortic Valve Other Information Study Quality: Adequate Conclusion Normal left ventricular wall thickness and chamber size. Estimated ejection fraction is 60%. There are no segmental wall motion abnormalities Normal right ventricular size and systolic function Both atria are normal in size There is a bioprosthetic aortic valve. Mean gradient is 14 mmHg. There is trace aortic regurgitatio n Mildly thickened mitral leaflets with trace regurgitation Structurally normal tricuspid and pulmonic valves. Mild tricuspid and pulmonic regurgitation Dilated ascending aorta measuring 3.8 cm Wall motion Left Ventricle The left ventricle is normal size. The left ventricular systolic function is normal. The left ventric ular ejection fraction is within the normal range. There is normal left ventricular wall thickness. T here is normal LV segmental wall motion. There is no ventricular septal defect visualized. LVEF is 60 %. Right Ventricle The right ventricle is normal size. The right ventricular systolic function is normal. The RVSP is 35 .4_ mmHg. Atria The left atrium size is normal. The right atrium size is normal. The interatrial septum is intact wit h no evidence for an atrial septal defect. Aortic Valve Peak aortic valve gradient is 23.9mmHg. Highest mean aortic valve gradient is 13.8mmHg. Calculated AV A by the continuity equation is 1.97cm2. Mean gradient is 14 mmHg Trace aortic regurgitation. Biopros thetic aortic valve is present. Mitral Valve Mildly thickened mitral leaflets No evidence of mitral valve stenosis. Mild mitral regurgitation. Bio prosthetic mitral valve appears normal. Tricuspid Valve The tricuspid valve is normal in structure. There is no tricuspid valve stenosis. Mild tricuspid regu rgitation. Pulmonic Valve The pulmonary valve is normal in structure. There is no pulmonic valvular stenosis. Mild pulmonic reg urgitation. Great Vessels The aortic root is normal in size. The ascending aorta is moderately dilated.3.86 cm IVC is normal in size and collapses >50% with inspiration. Pericardium There is no pericardial effusion. 2D Dimensions IVSD d PLAX 1.04 cm F: 0.6-1.0 LV Vol A2C d MOD 67.1 mL LVPW d PLAX 1.05 cm F: 0.6 - 1.0 LV Vol A4C d MOD 94.0 mL LVID d PLAX 4.57 cm F: 3.8 - 5.2 LA vol/ BSA A2C s A-L 29.9 mL/m2 LVDs 3.10 cm F: 2.2 - 3.5 LA vol/ BSA A4C s A-L 32.8 mL/m2 Ao Root d 2.61 cm F: 2.7 - 3.3 LA Vol/ BSA Biplane s A-L 32.6 mL/m2 RA Area A4C 11.22 cm2 LA Area A4C s MOD 20.33 cm2 RA Vol/ BSA A4C s A-L 12.3 mL/m2 LA Area A2C s MOD 20.21 cm2 Ao Asc Diam d 3.86 cm F: 2.3 - 3.1 LV EF A4C MOD 60.1 % LV EF Teichholz 59.4 % LV EF A2C MOD 60.3 % LVEF (Morillo's) 63.12 % F: 54 - 74 LV EF Biplane MOD 63.1 % LV Volume 64.11 mL F: 46 - 106 SV 54.01 mL LV Volume Index 32.05 mL/m2 F: 29 - 61 SV Index 26.94 mL/m2 LV Vol Biplane MOD 85.6 mL FS 31.40 % M-Mode TAPSE 2.04 cm (M/F) >1.7 LV Diastology MV E' medial 0.055 (>0.07 m/s) E/A Ratio 1.1 LV E/e MED 18.10 (<14) MV E Vmax 0.99 (0.4-1.3 m/s) MV E' lateral 0.118 (>0.1 m/s) MV A Vmax 0.90 (0.4-1.3 m/s) LV E/e LAT 8.35 (<14) MV E/A Ratio 1.05 MV E/E' medial 18.15 MV E/E' lateral 8.37 Aortic Valve LVOT Area 3.40 cm2 AoV Area Vmax 1.97 cm2 LVOT Vmax 1.42 m/s AoV Area/ BSA (Vmax) 0.98 cm2/m2 LVOT Mean Guru. 0.97 m/s JUAN PABLO Mean Guru. 1.86 cm2 LVOT Peak Grad 8.0 mmHg JUAN PABLO Mean Guru. Index 0.93 cm2/m2 LVOT Mean Grad 4.4 mmHg LVOT VTI 0.344 m LVOT Diam s 2.05 cm AoV Vmax 2.44 m/s Velocity Ratio 0.58 AoV Mean Guru. 1.78 m/s AoV Peak Grad 23.9 mmHg LVOT SV 116.96 mL AoV Mean Grad 13.8 mmHg AoV VTI 0.556 m AoV Area VTI 2.10 cm2 AoV Area/ BSA (VTI) 1.05 cm/m2 Mitral Valve MV DT 255 (160-240 msec) MR Vmax 6.28 m/s MV PHT 74 msec MR VTI 2.203 m MV Area PHT 2.98 cm2 MR Peak Grad 157.9 mmHg MV VTI 0.376 m MR Mean Grad 95.2 mmHg MV VTI Annulus 0.384 m MR PISA Radius 0.45 cm MV Area VTI 3.18 (4.0-6.0 cm2) MR EROA 0.07 cm2 MR Aliasing Velocity 0.35 m/s MR PISA 1.28 cm2 Pulmonary Valve PV Vmax 1.08 (0.5-1.5 m/s) RVOT Peak Gr. 3.21 mmHg PV Peak Grad 4.7 mmHg RVOT Mean Gr. 1.65 mmHg PV Mean Grad 2.2 mmHg RVOT VTI 0.206 m PV VTI 0.223 m RVOT Vmax 0.90 m/s Tricuspid Valve TR Peak Grad 32.4 mmHg TR Vmax 2.85 m/s RA Pressure 3.00 mmHg RVSP (TR) 35.4 mmHg
== END 2020-11-13 02:22 ==
PROVIDERS: PCP Nurse Practitioner Family; Visit Provider Internal Medicine Cardiovascular Disease
DX: I10 Essential (primary) hypertension (principal); Z95.3 Presence of xenogenic heart valve; I36.1 Nonrheumatic tricuspid (valve) insufficiency; I37.1 Nonrheumatic pulmonary valve insufficiency
CPT/HCPCS: 93306

== ENCOUNTER 2020-11-13 13:15 | Outpatient (REF) | payer MEDICARE, OTHER, SELFPAY ==
[2020-11-15 11:34] LABS: Source: Passed Stone
== END 2020-11-13 13:16 | disposition home or self-care (01) ==
LOC: LBN 13:15
PROVIDERS: PCP Nurse Practitioner Family; Visit Provider Urology
DX: N20.0 Calculus of kidney (principal)
CPT/HCPCS: 82365

== ENCOUNTER 2020-11-20 10:03 | Outpatient (REF) | payer MEDICARE, OTHER, SELFPAY ==
[2020-11-20 16:36] LABS: ALT 31 U/L (14-59); AST 17 U/L (15-37); Anion Gap 7.4 mmol/L (3-11); BUN 25 mg/dL (7-18); CO2 26.6 mmol/L (21.0-32.0); CREATININE 1.5 mg/dL (0.55-1.02); Calcium 9.2 mg/dL (8.5-10.1); Chloride 108 mmol/L (98-107); Estimated GFR 34.04 (mL/min/1.73m2); Glucose 107 mg/dL (74-106); HDL Cholesterol 69 mg/dL (40-60); LDL CHOLESTEROL 93 mg/dL (<100); Sodium 142 mmol/L (136-145)
[2020-11-20 16:58] LABS: Creatine Kinase 86 U/L (26-192)
== END 2020-11-20 10:04 | disposition home or self-care (01) ==
LOC: NCHCN 10:03
PROVIDERS: PCP Nurse Practitioner Family; Visit Provider Nurse Practitioner Family
DX: I10 Essential (primary) hypertension (principal); R73.9 Hyperglycemia, unspecified; E78.5 Hyperlipidemia, unspecified; N18.30 Chronic kidney disease, stage 3 unspecified
CPT/HCPCS: 80048; 82550; 83721; 83718; 84450; 84460

== ENCOUNTER → 2020-11-28 11:03 | Outpatient (BNVA) | payer MEDICARE, OTHER, SELFPAY | PROVIDERS: PCP Nurse Practitioner Family; Referring Provider Nurse Practitioner Family; Visit Provider Internal Medicine Cardiovascular Disease | DX: E78.2 Mixed hyperlipidemia (principal); Z95.818 Presence of other cardiac implants and grafts; G47.33 Obstructive sleep apnea (adult) (pediatric); Z95.3 Presence of xenogenic heart valve; I10 Essential (primary) hypertension; Z79.01 Long term (current) use of anticoagulants | CPT/HCPCS: 99214; 99213 ==

== ENCOUNTER 2020-12-11 01:33 | Outpatient (CLI) | payer MEDICARE, OTHER, SELFPAY ==
--- NOTE | 2020-12-11 | DI.US_ITS ---
Exam(s) US CAROTID EXAM: US CAROTID CLINICAL HISTORY: DIZZINESS, R42,VISION CHANGES,DIFFICULTY WITH MOVEMENT, ? ATHEROSCLEROSIS. TECHNIQUE: Ultrasound carotids performed using grayscale, color-flow, and spectral Doppler imaging. COMPARISON: No exams were available for comparison FINDINGS: RIGHT-SIDE: Some plaque is noted distal right common carotid artery and bulb and proximal ICA. Slightly elevated distal right ICA end-diastolic velocity 45 cm/sec noted. Maximum systolic velocity 105 cm/sec. Ruby roximately 50 percent stenosis proximal right ICA. Antegrade flow is demonstrated in the right vertebral artery. Incidentally noted are multiple nodules in the right thyroid lobe. LEFT-SIDE: Some plaque is also evident the distal left common carotid artery and bulb and proximal left ICA with out significantly elevated systolic velocities and end-diastolic velocities upper normal. Estimated at less than 50 percent stenosis. Antegrade flow demonstrated in the left vertebral artery. Nodules also evident in the left thyroid lobe. Measurements: R Bulb: 88.7cm/s PS / 23.1cm/s ED R CCA: 86.8cm/s PS / 27cm/s ED R ECA: 85.5cm/s PS / 20.6cm/s ED R ICA Prox: 73.3cm/s PS /21.2cm/s ED R ICA Mid: 84.2cm/s PS / 32.8cm/s ED R ICA Distal: 113.2cm/s PS /43.8cm/s ED R Vert: 39.9cm/s PS / 15cm/s ED R SVR: 1.4 R DVR: 1.59 L Bulb: 57.8cm/s PS /17.9cm/s ED L CCA: 77.5cm/s PS / 29.5cm/s ED L ECA: 109.9cm/s PS /26cm/s ED L ICA Prox:68cm/s PS / 27.5cm/s ED L ICA Mid: 101.2cm/sPS / 41.2cm/s ED L ICA Distal: 99.1cm/s PS / 36.2cm/s ED L Vert: 52.1cm/s PS / 18.8cm/s ED L SVR: 1.28 L DVR: 1.65 IMPRESSION: 1. Some plaque bilaterally without evidence of tight stenosis. Amount of stenosis is estimated at le ss than 50 percent on the left side and approximately 50 percent on the right side. 2. Antegrade flow is demonstrated in both vertebral arteries. 3. Incidentally noted are multiple nodules in both thyroid lobes. Recommend dedicated thyroid ultras ound follow-up. Criteria for Carotid Stenosis: Normal: ICA PSV <125 cm/s no plaque or intimal thickening is visible. <50% stenosis: ICA PSV <125 cm/s and plaque or intimal thickening is visible. 50-69% stenosis: ICA PSV is 125-250 cm/s and plaque is visible. >70% stenosis to near occlusion: ICA PSV >250 cm/s with visible plaque and luminal narrowing. DATA REPOSITORY:
== END 2020-12-11 01:53 ==
PROVIDERS: PCP Nurse Practitioner Family; Visit Provider Nurse Practitioner Family
DX: R42 Dizziness and giddiness (principal); I65.23 Occlusion and stenosis of bilateral carotid arteries; E04.2 Nontoxic multinodular goiter
CPT/HCPCS: 93880

== ENCOUNTER 2020-12-19 13:59 | Outpatient (REF) | payer MEDICARE, OTHER, SELFPAY ==
[2020-12-19 16:00] LABS: FREE T4 0.98 ng/dL (0.76-1.46); TSH 1.81 uIU/mL (0.36-3.74)
== END 2020-12-19 14:00 | disposition home or self-care (01) ==
LOC: NCHCN 13:59
PROVIDERS: PCP Nurse Practitioner Family; Visit Provider Nurse Practitioner Family
DX: R42 Dizziness and giddiness (principal); E04.2 Nontoxic multinodular goiter
CPT/HCPCS: 84439; 84443

== ENCOUNTER 2021-01-08 02:19 | Outpatient (CLI) | payer MEDICARE, OTHER, SELFPAY ==
--- NOTE | 2021-01-08 | DI.US_ITS ---
Exam(s) US THYROID EXAM: US THYROID CLINICAL HISTORY: THYROID NODULES ON CAROTID US,E04.2. TECHNIQUE: Ultrasound thyroid performed using standard protocol. COMPARISON: No exams were available for comparison FINDINGS: ISTHMUS: 3.7 mm RIGHT LOBE: Size: 3.5 x 1.5 x 1.6 cm Echogenicity: Normal. Vascularity: Normal. Nodules: Multiple thyroid nodules are seen. The largest measures 1 cm. No suspicious nodules are se en. LEFT LOBE: Size: 3.9 x 1.9 x 1.5 cm Echogenicity: Normal. Vascularity: Normal. Nodules: Multiple thyroid nodules are present. There is a 1.0 x 0.7 x 0.8 cm solid slightly hypoecho ic nodule in the left lobe. It is consistent with a TI-RADS level 4 nodule. No other suspicious nod ules are present. OTHER FINDINGS: None. IMPRESSION: Multinodular thyroid gland. DATA REPOSITORY:
== END 2021-01-08 02:39 ==
PROVIDERS: PCP Nurse Practitioner Family; Visit Provider Nurse Practitioner Family
DX: E04.2 Nontoxic multinodular goiter (principal)
CPT/HCPCS: 76536

== ENCOUNTER 2021-01-16 02:39 | Outpatient (CLI) | payer MEDICARE, OTHER, SELFPAY ==
[2021-01-16 11:55] LABS: Anion Gap 12.4 mmol/L (3-11); BUN 23 mg/dL (7-18); CO2 22.6 mmol/L (21.0-32.0); CREATININE 1.7 mg/dL (0.55-1.02); Calcium 9.2 mg/dL (8.5-10.1); Chloride 106 mmol/L (98-107); Estimated GFR 29.46 (mL/min/1.73m2); Glucose 153 mg/dL (74-106); Potassium 4.4 mmol/L (3.5-5.1); Sodium 141 mmol/L (136-145)
== END 2021-01-16 02:40 | disposition home or self-care (01) ==
LOC: LBO 02:39
PROVIDERS: PCP Nurse Practitioner Family; Visit Provider Internal Medicine Nephrology
DX: N18.30 Chronic kidney disease, stage 3 unspecified (principal)
CPT/HCPCS: 36415; 80048

== ENCOUNTER 2021-06-18 21:55 | Outpatient (REF) | payer MEDICARE, OTHER, SELFPAY ==
[2021-06-18 21:52] LABS: Anion Gap 7.2 mmol/L (3-11); BUN 24 mg/dL (7-18); CO2 30.8 mmol/L (21.0-32.0); CREATININE 1.5 mg/dL (0.55-1.02); Calcium 9.4 mg/dL (8.5-10.1); Chloride 106 mmol/L (98-107); Estimated GFR 33.94 (mL/min/1.73m2); FREE T4 0.94 ng/dL (0.76-1.46); Glucose 98 mg/dL (74-106); Potassium 5.2 mmol/L (3.5-5.1); Sodium 144 mmol/L (136-145); TSH 0.91 uIU/mL (0.36-3.74)
== END 2021-06-18 21:56 | disposition home or self-care (01) ==
LOC: NCHCN 21:55
PROVIDERS: PCP Nurse Practitioner Family; Visit Provider Nurse Practitioner Family
DX: E04.2 Nontoxic multinodular goiter (principal); N20.0 Calculus of kidney
CPT/HCPCS: 80048; 84439; 84443

== ENCOUNTER 2021-09-10 16:05 | Outpatient (REF) | payer MEDICARE, OTHER, SELFPAY | END 2021-09-10 16:06 | disposition home or self-care (01) | LOC: NCHCN 16:05 | PROVIDERS: PCP Nurse Practitioner Family; Visit Provider Family Medicine | DX: R30.9 Painful micturition, unspecified (principal) | CPT/HCPCS: 87086 ==

== ENCOUNTER 2021-09-25 01:50 | Outpatient (CLI) | payer MEDICARE, OTHER, SELFPAY ==
--- NOTE | 2021-09-25 06:45 | DI.US_ITS ---
Exam(s) US RENAL EXAM: US RENAL CLINICAL HISTORY: monitoring kidney stones,n20.0 TECHNIQUE: Ultrasound performed using standard protocol. COMPARISON: US US THYROID from 01/08/2021 FINDINGS: Renal ultrasound was performed according to the usual protocol. There is mild prominence of the righ t renal pelvis without evidence of hydronephrosis. No nephrolithiasis on the right. On the left there is an midpole echogenic focus with posterior acoustic shadowing and twinkle artifac t noted in the renal midpole and there is a 9 millimeter similar finding in the lower pole. These ar e consistent with small nonobstructing calculi. No left hydronephrosis. No renal mass identified on right or left. Urinary bladder shows pre and postvoid volume of 81 cc and 0 cc respectively, bladder is grossly unre markable. Ureteral jets are noted bilaterally. IMPRESSION: Nonobstructing left nephrolithiasis. No other significant findings. DATA REPOSITORY:
== END 2021-09-25 02:10 ==
PROVIDERS: PCP Nurse Practitioner Family; Visit Provider Nurse Practitioner Gerontology
DX: N20.0 Calculus of kidney (principal)
CPT/HCPCS: 76770

== ENCOUNTER → 2021-10-04 09:36 | Outpatient (BNVA) | payer MEDICARE, OTHER, SELFPAY | PROVIDERS: PCP Nurse Practitioner Family; Referring Provider Nurse Practitioner Family; Visit Provider Nurse Practitioner Gerontology | DX: N20.0 Calculus of kidney (principal) | CPT/HCPCS: 99214 ==

== ENCOUNTER → 2021-11-27 10:38 | Outpatient (BNVA) | payer MEDICARE, OTHER, SELFPAY | PROVIDERS: PCP Nurse Practitioner Family; Referring Provider Nurse Practitioner Family; Visit Provider Internal Medicine Cardiovascular Disease | DX: I48.91 Unspecified atrial fibrillation (principal); I10 Essential (primary) hypertension; Z95.3 Presence of xenogenic heart valve | CPT/HCPCS: 99214; 99213 ==

== ENCOUNTER 2022-01-18 14:44 | Outpatient (REF) | payer MEDICARE, OTHER, SELFPAY ==
[2022-01-18 18:39] LABS: Anion Gap 7.7 mmol/L (3-11); BUN 22 mg/dL (7-18); CO2 29.3 mmol/L (21.0-32.0); CREATININE 1.6 mg/dL (0.55-1.02); Calcium 9.4 mg/dL (8.5-10.1); Chloride 107 mmol/L (98-107); Estimated GFR 31.51 (mL/min/1.73m2); Glucose 95 mg/dL (74-106); Potassium 5.4 mmol/L (3.5-5.1); Sodium 144 mmol/L (136-145)
== END 2022-01-18 14:45 | disposition home or self-care (01) ==
LOC: NCHCN 14:44
PROVIDERS: PCP Nurse Practitioner Family; Visit Provider Nurse Practitioner Family
DX: N18.30 Chronic kidney disease, stage 3 unspecified (principal)
CPT/HCPCS: 80048

== ENCOUNTER → 2022-03-05 02:00 | Outpatient (CLI) | payer MEDICARE, OTHER, SELFPAY ==
--- NOTE | 2022-03-05 07:30 | DI.US_ITS ---
Exam(s) US THYROID EXAM: US THYROID CLINICAL HISTORY: Assess stability of thyroid nodules,E04.2. TECHNIQUE: Ultrasound thyroid performed using standard protocol. COMPARISON: US US THYROID from 01/08/2021 FINDINGS: ISTHMUS: 5 mm RIGHT LOBE: Size: 4 x 1.5 x 1.5 cm Echogenicity: Normal. Vascularity: Normal. Nodules: Multiple nodules that are less than 1 cm in diameter. No suspicious nodules are seen. LEFT LOBE: Size: 4.3 x 2.1 x 2.2 cm Echogenicity: Normal. Vascularity: Normal. Nodules: There is a 1.5 x 1.4 x 1.1 cm mixed cystic and solid nodule in the left lobe. It is hypoech oic with ill-defined borders. No echogenic foci seen. It is not taller than wide. This is consiste nt with a TIRADS level 3 nodule. Due to its size, follow-up examination is recommended. No other barrera spicious nodules warranting follow-up or aspiration are seen in the left thyroid gland. OTHER FINDINGS: None. IMPRESSION: Multinodular thyroid gland. DATA REPOSITORY:
== END ==
PROVIDERS: PCP Nurse Practitioner Family; Visit Provider Otolaryngology
DX: E04.2 Nontoxic multinodular goiter (principal)
CPT/HCPCS: 76536

== ENCOUNTER 2022-04-17 01:48 | Outpatient (CLI) | payer MEDICARE, OTHER, SELFPAY ==
[2022-04-17 12:14] LABS: Anion Gap 7.1 mmol/L (3-11); BUN 23 mg/dL (7-18); CO2 26.9 mmol/L (21.0-32.0); CREATININE 1.5 mg/dL (0.55-1.02); Calcium 8.7 mg/dL (8.5-10.1); Chloride 105 mmol/L (98-107); Estimated GFR 36.34 (mL/min/1.73m2); Glucose 115 mg/dL (74-106); Sodium 139 mmol/L (136-145)
[2022-04-18 05:16] LABS: Vitamin D 25 Total 44.4 ng/mL (30-100)
[2022-04-18 09:20] LABS: Parathyroid Hormone,Intact 82 pg/mL (19-88)
== END 2022-04-17 01:49 | disposition home or self-care (01) ==
LOC: LBO 01:48
PROVIDERS: PCP Nurse Practitioner Family; Visit Provider Internal Medicine Nephrology
DX: N18.30 Chronic kidney disease, stage 3 unspecified (principal); N20.0 Calculus of kidney
CPT/HCPCS: 36415; 80048; 82306; 83970

== ENCOUNTER 2022-09-24 01:08 | Outpatient (CLI) | payer MEDICARE, OTHER, SELFPAY ==
--- NOTE | 2022-09-24 07:15 | DI.US_ITS ---
Exam(s) US RENAL EXAM: US RENAL CLINICAL HISTORY: monitoring kidney stone burden (size/position),n20.0. TECHNIQUE: Watkins scale, color and spectral Doppler were used. COMPARISON: US US RENAL from 09/25/2021 FINDINGS: Renal size in cm: Right: 9.0. Left: 9.3. Echogenicity: Normal. Hydronephrosis: No. Cyst or mass: No. Nephrolithiasis: No definite shadowing echogenic foci are seen sonographically. Other findings: None. Bladder:Normal. Ureteral jets: Right: Visualized and unremarkable. Left: Visualized and unremarkable. Prevoid vol:308 cc Postvoid vol:4 cc Renal color flow: Symmetric and within normal limits. IMPRESSION: No definite nephrolithiasis. No hydronephrosis. A renal colic CT may be obtained for better evaluat ion. DATA REPOSITORY:
== END 2022-09-24 01:28 ==
LOC: DI 01:08
PROVIDERS: PCP Nurse Practitioner Family; Visit Provider Nurse Practitioner Gerontology
DX: N20.0 Calculus of kidney (principal)
CPT/HCPCS: 76770

== ENCOUNTER → 2022-10-01 08:33 | Outpatient (BNVA) | payer MEDICARE, OTHER, SELFPAY | PROVIDERS: PCP Nurse Practitioner Family; Visit Provider Nurse Practitioner Gerontology | DX: N20.0 Calculus of kidney (principal) | CPT/HCPCS: 99213 ==

== ENCOUNTER 2022-10-07 17:11 | Outpatient (REF) | payer MEDICARE, OTHER, SELFPAY ==
[2022-10-07 15:22] LABS: HCT 45.8 % (36.0-46.0); HGB 15.9 g/dL (11.2-15.7); MCH 32.3 pg (27.0-33.0); MCHC 34.7 % (32.0-36.0); MCV 93 fL (80-95); MPV 10.2 fL (8.0-11.0); Platelet Count 150 10^3/uL (130-400); RBC 4.93 10^6/uL (3.93-5.22); RDW-SD 44.3 fL; WBC 4.79 10^3/uL (4.4-10.8)
[2022-10-07 15:49] LABS: ALT 28 U/L (14-59); AST 21 U/L (15-37); Albumin 3.8 g/dL (3.4-5.0); Alkaline Phosphatase 133 U/L (46-116); Anion Gap 7.8 mmol/L (3-11); BUN 18 mg/dL (7-18); Bilirubin, Total 0.4 mg/dL (0.2-1.0); CO2 27.2 mmol/L (21.0-32.0); CREATININE 1.5 mg/dL (0.55-1.02); Calcium 9.3 mg/dL (8.5-10.1); Calculated LDL 79 mg/dL (<100); Chloride 106 mmol/L (98-107); Cholesterol 165 mg/dL (<200); Estimated GFR 36.12 (mL/min/1.73m2); Glucose 110 mg/dL (74-106); HDL Cholesterol 69 mg/dL (40-60); Potassium 4.5 mmol/L (3.5-5.1); Sodium 141 mmol/L (136-145); Total Protein 7.4 g/dL (6.4-8.2); Triglyceride 87 mg/dL (<150)
[2022-10-07 16:02] LABS: Creatine Kinase 110 U/L (26-192)
== END 2022-10-07 17:12 | disposition home or self-care (01) ==
LOC: NCHCN 17:11
PROVIDERS: PCP Nurse Practitioner Family; Visit Provider Nurse Practitioner Family
DX: E78.5 Hyperlipidemia, unspecified (principal); I10 Essential (primary) hypertension; I48.0 Paroxysmal atrial fibrillation
CPT/HCPCS: 80053; 80061; 82550; 85027

== ENCOUNTER 2022-10-21 13:46 | Outpatient (REF) | payer MEDICARE, OTHER, SELFPAY ==
[2022-10-21 19:50] LABS: Alkaline Phosphatase 139 U/L (46-116); GGT 97 U/L (5-55)
== END 2022-10-21 13:47 | disposition home or self-care (01) ==
LOC: NCHCN 13:46
PROVIDERS: PCP Nurse Practitioner Family; Visit Provider Nurse Practitioner Family
DX: R74.8 Abnormal levels of other serum enzymes (principal)
CPT/HCPCS: 82977; 84075

== ENCOUNTER 2022-10-25 01:45 | Outpatient (CLI) | payer MEDICARE, OTHER, SELFPAY ==
--- NOTE | 2022-10-25 | DI.US_ITS ---
Exam(s) US ABDOMEN EXAM: US ABDOMEN CLINICAL HISTORY: ELEVATED ALK PHOE AND GGT,R74.8 TECHNIQUE: Ultrasound abdomen performed using standard protocol. COMPARISON: CT CT ABDOMEN PELVIS WO from 08/30/2020 US US RENAL from 09/24/2022 FINDINGS: ABDOMINAL AORTA AND IVC: Visualized portions normal caliber. PANCREAS: Normal where visualized. LIVER: Normal. Hepatopedal flow in the Portal Vein. The liver measures 14.1 cm long. GALLBLADDER:Status post cholecystectomy. BILIARY SYSTEM: Common bile duct measures < 7 mm. No intrahepatic biliary ductal dilation. KIDNEYS: Kidneys are symmetric in size. No evidence of renal calculi. No evidence of hydronephrosis. Two small simple parapelvic cysts. No follow-up is recommended. SPLEEN: Not enlarged. ASCITES: None seen. IMPRESSION: Status post cholecystectomy. No acute abdominal process. DATA REPOSITORY:
== END 2022-10-25 02:05 ==
LOC: DI 01:46
PROVIDERS: PCP Nurse Practitioner Family; Visit Provider Nurse Practitioner Family
DX: R74.8 Abnormal levels of other serum enzymes (principal); Z90.49 Acquired absence of other specified parts of digestive tract
CPT/HCPCS: 76700

== ENCOUNTER 2022-11-24 16:10 | Emergency (ER) | payer MEDICARE, OTHER, SELFPAY ==
[2022-11-24 16:13] VITALS: BP 193/100; PULSE 78; RESP 20; TEMP 36.7; O2SAT 98
--- NOTE | 2022-11-24 16:13 | ED.GENADUL_ITS ---
Discharge Plan Disposition Patient Disposition: Home Condition: Stable Discharge Details Clinical Impression: Blurry vision, left eye, Vitreous hemorrhage, left eye Primary Care Provider: Sandra Dow ED Provider: Kirti Quiros Home Meds and New Rx's Prescriptions: Continued simvastatin 10 mg tablet 10 mg PO QPM cholecalciferol (vitamin D3) 1,000 unit capsule 1,000 unit PO DAILY mag citrate-potassium citrate 70-99 mg capsule 3 cap PO DAILY Patient Comments: not taking metoprolol succinate 25 mg tablet extended release 24 hr 50 mg PO DAILY Qty: 180 3RF Rx Instructions: Take two of the 25mg tablets to total 50mg daily diltiazem HCl 120 mg capsule,extended release 24 hr 120 mg PO DAILY Qty: 90 3RF Rx Instructions: this replaces your Lisinopril warfarin 2.5 mg tablet 2.5 mg PO DAILY Patient Comments: 11/25/19 pt reports 5 and 7.5 doses. 01/19/20 pt reports 5mg PO QD. MT 11/28/20: pt reports 5mg 6 days/wk, 7.5mg 1 day/wk. potassium citrate 99 mg capsule 297 mg PO DAILY acetaminophen [Acetaminophen Extra Strength] 500 mg tablet 500 mg PO BID amoxicillin 500 mg capsule 2,000 mg PO DAILY PRN Patient Comments: dental use only Rx Instructions: take prior to dental procedure meclizine 25 mg tablet 25 mg PO Q6H PRN Discharge Instructions Instructions: Blurred Vision (ED), Visual Floaters (ED) Additional Instructions: Your symptoms are possibly due to a vitreous hemorrhage which is bleeding within the fluid part within your eye or a posterior vitreous detachment or retinal detachment which may require surgical repair. An appointment has been made for you with [facility] ophthalmology tomorrow at 12:45 PM. You will go to [facility] and enter at the main entrance and go up to the next floor to 4B. Be sure to rest and drink plenty of fluids tonight and tomorrow. Your blood pressure was also high in the emergency department today. Be sure to check your blood pressure when you go home today. Continue to take your regular medications as directed. Return immediately to the emergency department if you develop any worsening or new concerning symptoms. Discharge Data Discharge Date/Time-TO BE ENTERED AT DEPARTURE: 11/24/22 19:35 Discharge Physician: Kirti J Bugbee Medical Decision Making 77yo F with a history of bioprosthetic aortic valve replacement, paroxysmal atrial fibrillation on Coumadin, hyperlipidemia, hypertension and vertigo who presents with a longstanding history of floaters in her left eye with sudden onset of worsening of floaters associated with blurry vision in her left eye 5 hours prior to arrival. Blood pressure significantly elevated on arrival at 193/100. She appears comfortable and nontoxic. On funduscopic exam, right eye demonstrates red light reflex but this is not evident in the left eye and only appears black. She has normal EOMI and has no complaint of eye pain and no evidence of tenderness, rash, cellulitis or trauma. She has no other focal deficits on exam. She has no complaint of fever, neck pain or altered mental status to suggest meningitis. Differential diagnosis includes retinal detachment, vitreous hemorrhage, retinal artery or vein occlusion, TIA, CVA. Will refer for screening labs, CTA head and neck and obtain blood side ocular ultrasound. Visual acuity: OD -- 20/30, OS -- can only see shadows 1800 --recheck BP 180/66. Bedside ocular ultrasound demonstrates what appears to be a potential vitreous hemorrhage. No obvious retinal detachment. Patient tolerated procedure well. Labs and imaging reviewed. Normal white blood cell count. Hemoglobin elevated at 16.5. INR therapeutic at 2.3. Troponin negative. CTA head and neck negative for acute findings. We will page [facility] ophthalmology for recommendations. 1830 --Case discussed with [facility] ophthalmology Dr Laboy who agreed presentation likely consistent with vitreous hemorrhage or posterior vitreous detachment, with potential involvement for retinal detachment. We will follow- up with patient in the [facility] ophthalmology clinic tomorrow for dilated fundus exam. If patient is noted to have a tear, laser surgery would be indicated. An appointment has been made at [address] [place] [address] tomorrow at 12:45 PM. No other acute recommendations at this time. Patient is unable to secure a ride home but feels comfortable driving home at this time. Medical Records Medical records reviewed: Yes I reviewed the patient's medical records. Imaging Data Radiologic Study: Radiologist's impression: CT Head Without Contrast Exam date and time: 11/24/2022 17:16 Age: 77 years old Clinical indication: Other: L eye blurry vision, R/O acute CVA TECHNIQUE: Imaging protocol: Computed tomography of the head without contrast. COMPARISON: US THYROID 03/05/2022 12:14 FINDINGS: Brain: Benign appearing extra-axial calcifications. Atrophy and chronic appearing white matter changes. No edema or hemorrhage. Cerebral ventricles: No ventriculomegaly. Paranasal sinuses: No acute sinusitis. Mastoid air cells: No mastoid effusion. Bones/joints: No acute fracture. Soft tissues: No suspicious lesions.? IMPRESSION: No acute intracranial findings. CTA Head With Contrast, Arteriography Exam date and time: 11/24/2022 17:16 Age: 77 years old Clinical indication: Other: L eye blurry vision, R/O acute CVA TECHNIQUE: Imaging protocol: Computed tomographic angiography of the head with contrast. Exam focused on the arteries. 3D rendering (Not supervised by radiologist): MIP and/or 3D reconstructed images were created by the technologist. Radiation optimization: All CT scans at this facility use at least one of these dose optimization techniques: automated exposure control; mA and/or kV adjustment per patient size (includes targeted exams where dose is matched to clinical indication); or iterative reconstruction. Contrast material: OMNIPAQUE 350; Contrast volume: 85 ml; Contrast route: INTRAVENOUS (IV);? COMPARISON: THYROID 03/05/2022 12:14 FINDINGS: ANTERIOR CIRCULATION: Right internal carotid artery: Intracranial segment is patent with no significant stenosis. No aneurysm. Right middle cerebral artery: No occlusion or significant stenosis. No aneurysm.? Right anterior cerebral artery: No occlusion or significant stenosis. No aneurysm.? Left internal carotid artery: Intracranial segment is patent with no significant stenosis. No aneurysm. Left middle cerebral artery: No occlusion or significant stenosis. No aneurysm. ? Left anterior cerebral artery: No occlusion or significant stenosis. No aneurysm.? POSTERIOR CIRCULATION: Right vertebral artery: No occlusion or significant stenosis. No aneurysm.? Left vertebral artery: No occlusion or significant stenosis. No aneurysm.? Basilar artery: No occlusion or significant stenosis. No aneurysm. Right posterior cerebral artery: No occlusion or significant stenosis. No aneurysm.? Left posterior cerebral artery: No occlusion or significant stenosis. No aneurysm.? Brain: No mass, mass effect, or midline shift. Cerebral ventricles: No ventriculomegaly. Bones/joints: No acute fracture or subluxation. Soft tissues: Unremarkable. IMPRESSION: No acute arterial pathology. No large vessel occlusion. CTA Neck With Contrast Exam date and time: 11/24/2022 17:16 Age: 77 years old Clinical indication: Other: L eye blurry vision, R/O acute CVA TECHNIQUE: Imaging protocol: Computed tomographic angiography of the neck with contrast. 3D rendering (Not supervised by radiologist): MIP and/or 3D reconstructed images were created by the technologist. Radiation optimization: All CT scans at this facility use at least one of these dose optimization techniques: automated exposure control; mA and/or kV adjustment per patient size (includes targeted exams where dose is matched to clinical indication); or iterative reconstruction. Contrast material: OMNIPAQUE 350; Contrast volume: 85 ml; Contrast route: INTRAVENOUS (IV);? COMPARISON: US THYROID 03/05/2022 12:14 FINDINGS: Right common carotid artery: No significant stenosis. No dissection or occlusion. Right internal carotid artery: Extracranial segment is patent with no significant stenosis. No dissection or occlusion. Right external carotid artery: No occlusion or significant stenosis. Left common carotid artery: No significant stenosis. No dissection or occlusion. Left internal carotid artery: Extracranial segment is patent with no significant stenosis. No dissection or occlusion. Left external carotid artery: No occlusion or significant stenosis. Right vertebral artery: No significant stenosis. No dissection or occlusion. Left vertebral artery: No significant stenosis. No dissection or occlusion. Aorta: Aortic prosthetic valve partially seen. Ascending aorta dilated to 43 mm. Thyroid: Heterogeneous thyroid gland. Follow-up as per institutional protocol. Soft tissues: No significant soft tissue swelling. Bones/joints: Median sternotomy wires. IMPRESSION: 1. ? No acute arterial pathology. Patent carotid and vertebral system bilaterally. 2. ? Incidental findings as described. XR Chest Exam date and time: 11/24/2022 17:30 Age: 77 years old Clinical indication: Other: Possible CVA, rule out acute disease TECHNIQUE: Imaging protocol: Radiologic exam of the chest. Views: 2 views. COMPARISON: CR CHEST 2 VIEWS PA,LAT 05/27/2016 10:41 FINDINGS: Tubes, catheters and devices: Aortic valvular prosthesis in the expected position. Lungs: No airspace consolidation. Pleural spaces: No pleural effusion. No pneumothorax. Heart/Mediastinum: The cardiac silhouette is upper limits of normal. Bones/joints: Median sternotomy wires. No displaced fracture. Intraperitoneal space: Right upper quadrant clips, probable cholecystectomy. IMPRESSION: 1. ? No acute findings. 2. ? Chronic findings as described. Lab Data Lab results reviewed: Yes I reviewed the patient's lab results. Labs: Laboratory Tests Range/Units 11/24/22 11/24/22 11/24/22 16:35 16:35 16:35 WBC (4.4-10.8) 10^3/uL 6.87 RBC (3.93-5.22) 10^6/uL 5.19 Hgb (11.2-15.7) g/dL 16.5 H Hct (36.0-46.0) % 47.9 H MCV (80-95) fL 92 MCH (27.0-33.0) pg 31.8 MCHC (32.0-36.0) % 34.4 RDW (11.7-14.6) % 12.9 Plt Count (130-400) 10^3/uL 162 MPV (8.0-11.0) fL 9.9 Immature Gran % 0.3 Neutrophils % 60.4 Lymphocytes % 27.8 Monocytes % 9.8 Eosinophils % 1.3 Basophils % 0.4 Nucleated RBC % (0.0-0.3) % 0.0 Absolute Neutrophils (1.2-6.7) 10^3/uL 4.15 Absolute Lymphocytes (1.2-3.4) 10^3/uL 1.91 Absolute Monocytes (0.1-0.8) 10^3/uL 0.67 Absolute Eosinophils (0.0-0.7) 10^3/uL 0.09 Absolute Basophils (0.0-0.2) 10^3/uL 0.03 PT (9.3-11.0) sec INR (0.9-1.1) APTT (21.5-31.9) sec 45.8 H Sodium (136-145) mmol/L 140 Potassium (3.5-5.1) mmol/L 3.9 Chloride (98-107) mmol/L 106 Carbon Dioxide (21.0-32.0) mmol/L 24.3 Anion Gap (3-11) mmol/L 9.7 BUN (7-18) mg/dL 16 Creatinine (0.55-1.02) mg/dL 1.3 H Est GFR (CKD-EPI 2020) (mL/min/1.73m2) 42.88 Glucose (74-106) mg/dL 105 Calcium (8.5-10.1) mg/dL 9.3 Magnesium (1.8-2.4) mg/dL 2.0 Total Bilirubin (0.2-1.0) mg/dL 0.3 AST (15-37) U/L 22 ALT (14-59) U/L 29 Alkaline Phosphatase (46-116) U/L 149 H Troponin I (<or=60) ng/L < 50 Total Protein (6.4-8.2) g/dL 8.0 Albumin (3.4-5.0) g/dL 4.0 Range/Units 11/24/22 16:35 WBC (4.4-10.8) 10^3/uL RBC (3.93-5.22) 10^6/uL Hgb (11.2-15.7) g/dL Hct (36.0-46.0) % MCV (80-95) fL MCH (27.0-33.0) pg MCHC (32.0-36.0) % RDW (11.7-14.6) % Plt Count (130-400) 10^3/uL MPV (8.0-11.0) fL Immature Gran % Neutrophils % Lymphocytes % Monocytes % Eosinophils % Basophils % Nucleated RBC % (0.0-0.3) % Absolute Neutrophils (1.2-6.7) 10^3/uL Absolute Lymphocytes (1.2-3.4) 10^3/uL Absolute Monocytes (0.1-0.8) 10^3/uL Absolute Eosinophils (0.0-0.7) 10^3/uL Absolute Basophils (0.0-0.2) 10^3/uL PT (9.3-11.0) sec 23.4 H INR (0.9-1.1) 2.3 H APTT (21.5-31.9) sec Sodium (136-145) mmol/L Potassium (3.5-5.1) mmol/L Chloride (98-107) mmol/L Carbon Dioxide (21.0-32.0) mmol/L Anion Gap (3-11) mmol/L BUN (7-18) mg/dL Creatinine (0.55-1.02) mg/dL Est GFR (CKD-EPI 2020) (mL/min/1.73m2) Glucose (74-106) mg/dL Calcium (8.5-10.1) mg/dL Magnesium (1.8-2.4) mg/dL Total Bilirubin (0.2-1.0) mg/dL AST (15-37) U/L ALT (14-59) U/L Alkaline Phosphatase (46-116) U/L Troponin I (<or=60) ng/L Total Protein (6.4-8.2) g/dL Albumin (3.4-5.0) g/dL ECG Data Attestation: I personally reviewed and interpreted this ECG (s) as follows: Interpretation: rate of 54, sinus, LBBB, no change from previous EKG 2016. No acute ischemic findings. HPI General Mode of arrival: ambulatory . Date/Time Provider Initiated Documentation: 11/24/22 16:10 . Limitations to Documentation: no limitations . Information obtained by: patient . HPI Narrative: Patient is a 77-year-old female with a history of hypertension, bioprosthetic aortic valve replacement, paroxysmal atrial fibrillation on Coumadin, CKD who presents to the ED increase in her usual floaters in her left eye and blurry vision in her left eye since noon today. Patient states starting approximately 5 hours ago she was at home preparing lunch when she noted that her usual dark shultz floaters in her left eye became the color of dark blood red, longer and was associated with blurry vision. She states when she covers her right eye she only sees hazy dark color in her left eye but otherwise cannot see any shapes or outlines of objects. She states when she moves her left eye around the dark red long floaters move. She states she has had dark shultz floaters in her left eye for several years and states she very rarely has had blurry vision with them which often resolves with eye movement. She denies any eye pain, dizziness, headache, neck pain, nausea, vomiting or unilateral extremity numbness or weakness. Related Data Home Medications Medication Instructions Recorded Confirmed simvastatin 10 mg tablet 10 mg PO QPM 06/09/18 11/24/22 metoprolol succinate 25 mg 50 mg PO DAILY #180 tabs 09/22/18 11/24/22 tablet,extended release 24 hr diltiazem HCl 120 mg capsule,24 120 mg PO DAILY #90 caps 09/24/18 11/24/22 hr,extended release cholecalciferol (vitamin D3) 25 1,000 unit PO DAILY 05/28/19 11/24/22 mcg (1,000 unit) capsule acetaminophen 500 mg tablet 500 mg PO BID 11/25/19 11/24/22 (Acetaminophen Extra Strength) amoxicillin 500 mg capsule 2,000 mg PO DAILY PRN 07/24/20 11/27/21 meclizine 25 mg tablet 25 mg PO Q6H PRN 07/24/20 11/24/22 warfarin 2.5 mg tablet 2.5 mg PO DAILY 11/28/20 11/24/22 magnesium citrate 70 mg-potassium 3 cap PO DAILY 10/04/21 11/24/22 citrate 99 mg capsule potassium citrate 99 mg capsule 297 mg PO DAILY 11/27/21 11/24/22 Previous Rx's Medication Instructions Recorded metoprolol succinate 25 mg 50 mg PO DAILY #180 tabs 09/22/18 tablet,extended release 24 hr diltiazem HCl 120 mg capsule,24 120 mg PO DAILY #90 caps 09/24/18 hr,extended release Allergies Allergy/AdvReac Type Severity Reaction Status Date / Time No Known Allergies Allergy Verified 11/24/22 16:18 General Stated Complaint: EyeProblem TINA: 3 Review of Systems All systems reviewed & are unremarkable except as noted in HPI and below Constitutional Constitutional: Reports as per HPI, Denies chills and Denies fever(s) Eyes Eyes: Denies blurry vision, Reports floaters and Reports loss of vision ENT Ears, Nose, Mouth, and Throat: Denies dizziness, Denies sore throat and Denies throat swelling Cardiovascular Cardiovascular: Denies chest pain and Denies dyspnea Respiratory Respiratory: Denies cough and Denies dyspnea Gastrointestinal Gastrointestinal: Denies abdominal pain, Denies diarrhea and Denies vomiting Genitourinary Genitourinary: Denies hematuria and Denies dysuria Musculoskeletal Musculoskeletal: Denies back pain and Denies numbness Integumentary/Breasts Skin/Breast: Denies lesions and Denies rash Neurologic Neurologic: Denies dizziness, Denies localized weakness, Reports loss of vision and Denies numbness Allergic/Immunologic Allergic/Immunologic: Denies throat swelling PFSH All Active Problems Blurry vision, left eye (Acute) Vitreous hemorrhage, left eye (Acute) Multinodular thyroid (Acute) Overweight (Acute) Bartholin's cyst (Acute) Vertigo, benign paroxysmal (Acute) Onychomycosis of toenail (Acute) Hydronephrosis (Acute) Osteopenia (Acute) Blood glucose elevated (Acute) Nevus (Acute) Dizziness (Acute) Multiple thyroid nodules (Acute) Kidney stone (Chronic) Status post placement of implantable loop recorder (Acute) ILR - Medtronic Atrial fibrillation, transient (Acute) Hyperlipidemia (Chronic) Pt. will be starting her XRT for breast ca next week. SORAYA (obstructive sleep apnea) (Chronic) Hypertension (Chronic) History of aortic valve replacement with bioprosthetic valve (Acute) P Medical History Aortic stenosis Atrial fibrillation Blood in urine CKD (chronic kidney disease), stage III Encounter for loop recorder check Medtronic LINQ Hemorrhoids HTN (hypertension) Hx of rheumatic fever Left ventricular hypertrophy Onychomycosis RLS (restless legs syndrome) Subungual hematoma Urgency of urination Surgical History Cholecystectomy Colonoscopy - MAC (01/03/17) H/O aortic valve replacement History of lumpectomy of right breast (~11/2018) Replacement of aortic valve 04/2016 Tonsillectomy and adenoidectomy Social History Smoking/Tobacco Use Status: Never Smoking risk assessment performed?: Yes Alcohol Intake: current Alcohol Intake frequency: 0-2 drinks per day Alcohol type: wine Details: rare drink- Drug use: Never Substance use type: does not use What type of physical activity do you participate in: walking Duration: < 15 minutes/day Frequency: 1-2 times per week Do you feel safe at home: Yes Do you feel safe in your relationship?: Yes Exam Const General: cooperative and no acute distress Orientation: alert, awake and oriented x3 HENMT Head: normal to inspection Face and sinus: normal facial exam Eyes General: appearance normal, both eyes and all related structures Pupils: PERRL EOM: EOM intact bilaterally Direct ophthalmoscopy: abnormal light reflex, decreased pupillary light reflex and other Other: Right eye funduscopic exam limited without dilation however appears as expected with red light reflex with faint blurry lines consistent with blood vessels. Left eye funduscopic exam notes no red light reflex and only black noted upon inspection with funduscope. Neck Neck: normal visual inspection and No submandibular swelling Lymphatic: no lymphadenopathy noted Chest Chest: normal inspection of the chest and no tenderness Resp Effort & Inspection: normal respiratory effort and able to speak in complete sentences Auscultation: clear to auscultation bilaterally Cardio Rate: regular rate Rhythm: regular rhythm GI Inspection: normal to inspection Palpation: soft, not firm, not rigid and nontender Auscultation: normal bowel sounds Back/Spine/Pelvis Thoracic/Lumbar Spine: thoracic and lumbar spine normal to inspection Pelvis: no pain with anterior-posterior compression Skin General skin exam: no rashes or lesions noted Neuro General: patient alert, patient awake, patient oriented x3, moves all extremities and no meningeal signs Cranial Nerves: CN's II-XI intact bilaterally Cognition: normal cognition Speech: speech normal Motor: muscle tone normal throughout and strength 5/5 throughout Sensory Exam: no sensory deficits noted Extrem General: normal to inspection, full ROM, capillary refill normal, no calf tenderness bilaterally and no edema Psych Appearance: grossly normal Mental Status: mental status grossly normal Speech and Movement: speech and movement normal Affect: normal affect
--- NOTE | 2022-11-24 17:00 | DI.RAD_ITS ---
Exam(s) XR CHEST 2V PA LATERAL EXAM: XR CHEST 2V PA LATERAL CLINICAL HISTORY: possible cva, r/o acute disease TECHNIQUE: 2D digital imaging was performed of the chest. Two images were obtained. PA and lateral views were obtained. COMPARISON: No exams were available for comparison FINDINGS: MEDIASTINUM: Normal. HEART: Normal. There is an aortic valve replacement. PULMONARY VASCULATURE: Normal. LUNGS: Clear. PLEURAL SPACE: No pleural effusion or pneumothorax. BONE:Within normal limits for the patient's age. Median sternotomy wires are present. OTHER FINDINGS:Normal. IMPRESSION: No acute pulmonary findings. DATA REPOSITORY: RADIATION DOSE DELIVERED:
--- NOTE | 2022-11-24 17:00 | DI.CT_ITS ---
Exam(s) CT BRAIN NECK CTA EXAM: CT BRAIN NECK CTA CLINICAL HISTORY: L eye blurry vision, r/o acute cva. TECHNIQUE: Imaging Protocol: Axial CT angiography was performed with multi-slice acquisition and mu lti-planar and/or 3D reconstructions. CONTRAST MATERIAL: Intravenous: Omnipaque 350 contrast volume:85 mL COMPARISON: CT RENAL COLIC WO CONTRAST from 01/15/[address] ABDOMEN PELVIS WO from 08/30/2020 FINDINGS: CT Head W/O and W: Ventricles and Extra axial spaces: Normal in size and morphology for the patient's age. Hemorrhage: None. Cerebral parenchyma: There is no acute territorial infarct. There are areas of decreased attenuation in the white matter most consistent with small vessel ischemic disease. Midline shift: None. Brainstem/Cerebellum: Normal. Calvarium: Normal. Visualized Paranasal sinuses/Mastoids: Clear. Soft Tissues: Unremarkable. Enhancement: Unremarkable. CTA Neck W: Common Carotid: Right: No dissection, occlusion or significant stenosis. Left: No dissection, occlusion or significant stenosis. External Carotid: Right: No occlusion or significant stenosis. Left: No occlusion or significant stenosis. Internal Carotid: Right: No dissection, occlusion or significant stenosis. Left: No dissection, occlusion or significant stenosis. Mild atherosclerosis at the origin. Vertebral Artery: Right: No dissection, occlusion or significant stenosis. Left: No dissection, occlusion or significant stenosis. Lung Apices: Normal. Ascending aorta measures 4.3 cm. Bones: Within normal limits for the patient's age. Sternal wires are in place. Soft Tissues: Normal. Thyroid gland: Several hypodense lesions are seen in the thyroid gland. The largest measures 5 mm. No follow-up is recommended. CTA Brain W: Internal Carotid Arteries: Normal. Anterior Cerebral Arteries: Right: No aneurysm, occlusion or significant stenosis. Left: No aneurysm, occlusion or significant stenosis. Middle Cerebral Arteries: Right: No aneurysm, occlusion or significant stenosis. Left: No aneurysm, occlusion or significant stenosis. Posterior Cerebral Arteries: Right: No aneurysm, occlusion or significant stenosis. Arises predominantly from the right posterior communicating artery. This is a normal variant. Left: No aneurysm, occlusion or significant stenosis. Vertebral Arteries: Right: No aneurysm, occlusion or significant stenosis. Left: No aneurysm, occlusion or significant stenosis. Basilar Artery: No aneurysm, occlusion or significant stenosis. IMPRESSION: 1. No large vessel occlusion or significant stenosis on the CT angiography of the head. 2. No acute intracranial process. 3. No occlusion or significant stenosis on the CT angiography of the neck. RADIATION DOSE DELIVERED: 1,947.03mGy.cm Total DLP DATA REPOSITORY: All CT scans at this facility are submitted to the National Radiology Data Registry (NRDR) Dose Index Registry (DIR) with the [employer] (A[employer]). RADIATION OPTIMIZATION: All CT scans at this facility use at least one of these dose optimization te chniques: automated exposure control; mA and/or kV adjustment per patient size (includes targeted exa ms where dose is matched to clinical indication); or iterative reconstruction.
[2022-11-24 17:16] LABS: Abs Immature Grans 0.02 10^3/uL (0.0-0.06); Absolute Basophil Count 0.03 10^3/uL (0.0-0.2); Absolute Eosinophil Count 0.09 10^3/uL (0.0-0.7); Absolute Lymphocyte Count 1.91 10^3/uL (1.2-3.4); Absolute Monocyte Count 0.67 10^3/uL (0.1-0.8); Absolute Neutrophil Count 4.15 10^3/uL (1.2-6.7); Basophils % 0.4; Eosinophils % 1.3; HCT 47.9 % (36.0-46.0); HGB 16.5 g/dL (11.2-15.7); Immature Grans % 0.3; Lymphocytes % 27.8; MCH 31.8 pg (27.0-33.0); MCHC 34.4 % (32.0-36.0); MCV 92 fL (80-95); MPV 9.9 fL (8.0-11.0); Monocytes % 9.8; Neutrophils % 60.4; Platelet Count 162 10^3/uL (130-400); RBC 5.19 10^6/uL (3.93-5.22); RDW 12.9 % (11.7-14.6); RDW-SD 43.7 fL; WBC 6.87 10^3/uL (4.4-10.8)
[2022-11-24] MEDS: Normal Saline - Diluent 50 ML VIAL IJ (17:23)
[2022-11-24] MEDS: Omnipaque 350 MG/ML 100 ML BTL 85 ML IJ (17:24)
[2022-11-24 17:27] LABS: INR 2.3 (0.9-1.1); Prothrombin Time 23.4 sec (9.3-11.0)
[2022-11-24 17:31] LABS: PTT Activated 45.8 sec (21.5-31.9)
[2022-11-24 17:36] LABS: ALT 29 U/L (14-59); AST 22 U/L (15-37); Alkaline Phosphatase 149 U/L (46-116); Anion Gap 9.7 mmol/L (3-11); BUN 16 mg/dL (7-18); Bilirubin, Total 0.3 mg/dL (0.2-1.0); CO2 24.3 mmol/L (21.0-32.0); CREATININE 1.3 mg/dL (0.55-1.02); Calcium 9.3 mg/dL (8.5-10.1); Chloride 106 mmol/L (98-107); Estimated GFR 42.88 (mL/min/1.73m2); Glucose 105 mg/dL (74-106); Potassium 3.9 mmol/L (3.5-5.1); Sodium 140 mmol/L (136-145); Troponin I < 50 ng/L (<or=60)
[2022-11-24 17:44] VITALS: BP 180/66; PULSE 69; RESP 16; O2SAT 98
--- NOTE | 2022-11-24 17:46 | DI.VRAD_ITS ---
PROCEDURE INFORMATION: Exam: XR Chest Exam date and time: 11/24/2022 17:30 Age: 77 years old Clinical indication: Other: Possible CVA, rule out acute disease TECHNIQUE: Imaging protocol: Radiologic exam of the chest. Views: 2 views. COMPARISON: CR CHEST 2 VIEWS PA,LAT 05/27/2016 10:41 FINDINGS: Tubes, catheters and devices: Aortic valvular prosthesis in the expected position. Lungs: No airspace consolidation. Pleural spaces: No pleural effusion. No pneumothorax. Heart/Mediastinum: The cardiac silhouette is upper limits of normal. Bones/joints: Median sternotomy wires. No displaced fracture. Intraperitoneal space: Right upper quadrant clips, probable cholecystectomy. IMPRESSION: 1. No acute findings. 2. Chronic findings as described. Dictated and Authenticated by: Ludmila Bautista MD. Ordering:WILMAR Cotto MD
--- NOTE | 2022-11-24 17:51 | DI.VRAD_ITS ---
PROCEDURE INFORMATION: Exam: CT Head Without Contrast Exam date and time: 11/24/2022 17:16 Age: 77 years old Clinical indication: Other: L eye blurry vision, R/O acute CVA TECHNIQUE: Imaging protocol: Computed tomography of the head without contrast. COMPARISON: THYROID 03/05/2022 12:14 FINDINGS: Brain: Benign appearing extra-axial calcifications. Atrophy and chronic appearing white matter changes. No edema or hemorrhage. Cerebral ventricles: No ventriculomegaly. Paranasal sinuses: No acute sinusitis. Mastoid air cells: No mastoid effusion. Bones/joints: No acute fracture. Soft tissues: No suspicious lesions. IMPRESSION: No acute intracranial findings. PROCEDURE INFORMATION: Exam: CTA Head With Contrast, Arteriography Exam date and time: 11/24/2022 17:16 Age: 77 years old Clinical indication: Other: L eye blurry vision, R/O acute CVA TECHNIQUE: Imaging protocol: Computed tomographic angiography of the head with contrast. Exam focused on the arteries. 3D rendering (Not supervised by radiologist): MIP and/or 3D reconstructed images were created by the technologist. Radiation optimization: All CT scans at this facility use at least one of these dose optimization techniques: automated exposure control; mA and/or kV adjustment per patient size (includes targeted exams where dose is matched to clinical indication); or iterative reconstruction. Contrast material: OMNIPAQUE 350; Contrast volume: 85 ml; Contrast route: INTRAVENOUS (IV); COMPARISON: THYROID 03/05/2022 12:14 FINDINGS: ANTERIOR CIRCULATION: Right internal carotid artery: Intracranial segment is patent with no significant stenosis. No aneurysm. Right middle cerebral artery: No occlusion or significant stenosis. No aneurysm. Right anterior cerebral artery: No occlusion or significant stenosis. No aneurysm. Left internal carotid artery: Intracranial segment is patent with no significant stenosis. No aneurysm. Left middle cerebral artery: No occlusion or significant stenosis. No aneurysm. Left anterior cerebral artery: No occlusion or significant stenosis. No aneurysm. POSTERIOR CIRCULATION: Right vertebral artery: No occlusion or significant stenosis. No aneurysm. Left vertebral artery: No occlusion or significant stenosis. No aneurysm. Basilar artery: No occlusion or significant stenosis. No aneurysm. Right posterior cerebral artery: No occlusion or significant stenosis. No aneurysm. Left posterior cerebral artery: No occlusion or significant stenosis. No aneurysm. Brain: No mass, mass effect, or midline shift. Cerebral ventricles: No ventriculomegaly. Bones/joints: No acute fracture or subluxation. Soft tissues: Unremarkable. IMPRESSION: No acute arterial pathology. No large vessel occlusion. PROCEDURE INFORMATION: Exam: CTA Neck With Contrast Exam date and time: 11/24/2022 17:16 Age: 77 years old Clinical indication: Other: L eye blurry vision, R/O acute CVA TECHNIQUE: Imaging protocol: Computed tomographic angiography of the neck with contrast. 3D rendering (Not supervised by radiologist): MIP and/or 3D reconstructed images were created by the technologist. Radiation optimization: All CT scans at this facility use at least one of these dose optimization techniques: automated exposure control; mA and/or kV adjustment per patient size (includes targeted exams where dose is matched to clinical indication); or iterative reconstruction. Contrast material: OMNIPAQUE 350; Contrast volume: 85 ml; Contrast route: INTRAVENOUS (IV); COMPARISON: US THYROID 03/05/2022 12:14 FINDINGS: Right common carotid artery: No significant stenosis. No dissection or occlusion. Right internal carotid artery: Extracranial segment is patent with no significant stenosis. No dissection or occlusion. Right external carotid artery: No occlusion or significant stenosis. Left common carotid artery: No significant stenosis. No dissection or occlusion. Left internal carotid artery: Extracranial segment is patent with no significant stenosis. No dissection or occlusion. Left external carotid artery: No occlusion or significant stenosis. Right vertebral artery: No significant stenosis. No dissection or occlusion. Left vertebral artery: No significant stenosis. No dissection or occlusion. Aorta: Aortic prosthetic valve partially seen. Ascending aorta dilated to 43 mm. Thyroid: Heterogeneous thyroid gland. Follow-up as per institutional protocol. Soft tissues: No significant soft tissue swelling. Bones/joints: Median sternotomy wires. IMPRESSION: 1. No acute arterial pathology. Patent carotid and vertebral system bilaterally. 2. Incidental findings as described. Dictated and Authenticated by: Ludmila Bautista MD. Ordering:WILMAR Cotto MD
--- NOTE | 2022-11-24 18:15 | RT.EKG_ITS ---
APPROVED REPORT Exam: Resting ECG Reason for Exam: possible cva Patient Location: E HR:64 bpm ECG Measurements Heart Rate 64 AXIS IA 206 P 37 QRSd 164 QRS -6 QT 471 T 126 QTc 486 Conclusion Sinus rhythm...normal P axis, V-rate 60- 99 Left bundle branch block...QRSd>120, broad/notched R ST elevation secondary to IVCD...Multiple VCG criteria. Sinus. LBBB. No significant change from previous EKG 2016. No STEMI. I have reviewed and interpreted ECG and agree with software generated interpretation.
[2022-11-24 19:19] VITALS: BP 176/71; PULSE 70; RESP 18; TEMP 36.6; O2SAT 97
--- NOTE | 2022-11-24 19:23 | NUR.NOTE ---
Pt encouraged to have friend/family to drive her home d/t diagnosis. She became upset, refused, and states if I have to sign a paper stating that I will drive myself home I will.
== END 2022-11-24 19:35 | disposition home or self-care (01) ==
PROVIDERS: Emergency Provider Physician Assistant; PCP Nurse Practitioner Family
DX: H53.8 Other visual disturbances (principal); H43.12 Vitreous hemorrhage, left eye; I48.0 Paroxysmal atrial fibrillation; E78.5 Hyperlipidemia, unspecified; I12.9 Hypertensive chronic kidney disease with stage 1 through stage 4 chronic kidney disease, or unspecified chronic kidney disease; N18.30 Chronic kidney disease, stage 3 unspecified; Z79.01 Long term (current) use of anticoagulants
CPT/HCPCS: 36415; 70496; 70498; 80053; 93005; 96360; 99285; 71046; 83735; 84484; 85025; 85610; 85730; 93010; J3490

== ENCOUNTER → 2022-12-17 10:39 | Outpatient (BNVA) | payer MEDICARE, OTHER, SELFPAY | PROVIDERS: PCP Nurse Practitioner Family; Referring Provider Nurse Practitioner Family; Visit Provider Internal Medicine Cardiovascular Disease | DX: I48.0 Paroxysmal atrial fibrillation (principal); Z79.01 Long term (current) use of anticoagulants; Z95.3 Presence of xenogenic heart valve; I10 Essential (primary) hypertension; Z01.810 Encounter for preprocedural cardiovascular examination | CPT/HCPCS: 99214 ==

== ENCOUNTER 2022-12-27 00:43 | Outpatient (CLI) | payer MEDICARE, OTHER, SELFPAY ==
--- NOTE | 2022-12-27 | DI.MAMMO_ITS ---
Exam(s) MG MAMMO SCREENING 60 MIN DUR EXAM: MG MAMMO SCREENING 60 MIN DUR CLINICAL HISTORY: SCREENING, Z12.39, BREAST CA,D05.11. TECHNIQUE: Bilateral full field digital CC and MLO mammographic images were obtained with 3D tomosyn thesis and utilizing computer aided detection (CAD). COMPARISON: Prior mammograms were reviewed. This patient underwent right breast lumpectomy for malignancy in 2019. FINDINGS: No new left breast findings. Lumpectomy site in the right breast remains stable. No new abnormal findings in this region nor else where in the right breast. There are no new spiculated masses nor new malignant appearing microcalcification groups. IMPRESSION: No radiographic evidence of malignancy. Stable appearance of right breast lumpectomy site. BI-RADS Category 2 - Benign Findings Breast Density - Category B - Scattered areas of fibroglandular density Breast density Category C or D implies that the patient has dense breast tissue. Dense breast tissue can make it harder to find cancer on a mammogram. Dense breast tissue is also associated with an incr eased risk of breast cancer. This information about the result of the mammogram report was provided to the patient to raise their awareness. Use this report when you speak with the patient about their risks for breast cancer, which includes their family history. At that time, you may recommend additional screening tests (Ultrasoun d or MRI) as these tests may add significant information. A negative radiographic report should not delay biopsy if a dominant or clinically suspicious mass is present. Up to ten percent of cancers are not identified on mammography. A negative report may reinforce clinical impression. Adenosis and dense breasts may obscure an underlying neoplasm. False positive reports average 6 to 10%. Patient will receive a letter notifying them of these results.
== END 2022-12-27 01:03 ==
LOC: DI 00:44
PROVIDERS: PCP Nurse Practitioner Family; Visit Provider Nurse Practitioner Family
DX: Z12.31 Encounter for screening mammogram for malignant neoplasm of breast (principal); D05.11 Intraductal carcinoma in situ of right breast
CPT/HCPCS: 77063; 77067

== ENCOUNTER 2023-01-23 02:26 | Outpatient (CLI) | payer MEDICARE, OTHER, SELFPAY ==
[2023-01-23] MEDS: Albuterol HFA 18 GM 200 PUFF INH IH (11:56)
[2023-01-23] MEDS: Inhaler, Assist Device 1 EACH MC (11:56)
[2023-01-23] MEDS: Methacholine 100 MG VIAL IH (11:56)
--- NOTE | 2023-01-23 16:05 | W.PFT ---
Date of service: 01/23/23 Time of Service: 10:08 Pulmonary Function Test Result Indications: Dyspnea Interpretation Spirometry: No airflow limitation. There was a 21% decrease in FEV1% with administration of 2.0mg/mL methacholine. Lung Volumes: Normal lung volumes Diffusion Capacity: Normal diffusion Airway Pressure: Normal airways resistance Impression Normal baseline pulmonary function but a positive methacholine challenge. This is consistent with asthma. Clinical Correlation therefore is recommended.
== END 2023-01-23 02:27 | disposition home or self-care (01) ==
LOC: RT 02:26
PROVIDERS: PCP Nurse Practitioner Family; Visit Provider Nurse Practitioner Family
DX: J45.909 Unspecified asthma, uncomplicated (principal); R78.89 Finding of other specified substances, not normally found in blood
CPT/HCPCS: 94060; 94070; 94726; 94729; 94010; J7674

== ENCOUNTER 2023-03-06 02:50 | Outpatient (CLI) | payer MEDICARE, OTHER, SELFPAY ==
--- NOTE | 2023-03-06 07:45 | DI.US_ITS ---
Exam(s) US THYROID EXAM: US THYROID CLINICAL HISTORY: Assess for change, MULTIPLE THYROID NODULES, E04.2. TECHNIQUE: Ultrasound thyroid performed using standard protocol. COMPARISON: US US THYROID from 03/05/2022 FINDINGS: ISTHMUS: 4 mm RIGHT LOBE: Size: 4.1 x 1.6 x 1.7 cm Echogenicity: Heterogeneous Vascularity: Normal. Nodules: Innumerable small nodules. Right nodule 1: 0.7 x 1.1 x 1.1 cm spongiform. TR 1 LEFT LOBE: Size: 3.9 x 1.8 x 1.9 cm Echogenicity: Heterogeneous Vascularity: Normal. Nodules: Innumerable small nodules. Nodule 1. Upper pole left lobe 1.1 x 1.1 x 1.3 centimeter spong iform nodule. TR 1. Nodule 20.7 x 0.7 x 0.8 centimeter solid hypoechoic smoothly marginated nodule without echogenic foci , TR 3, no follow-up recommended due to small size. OTHER FINDINGS: None. IMPRESSION: Innumerable bilateral small thyroid nodules. No suspicious nodules. DATA REPOSITORY:
== END 2023-03-06 03:10 ==
LOC: DI 02:51
PROVIDERS: PCP Nurse Practitioner Family; Visit Provider Otolaryngology
DX: E04.2 Nontoxic multinodular goiter (principal)
CPT/HCPCS: 76536

== ENCOUNTER 2023-03-11 11:45 | Outpatient (REF) | payer MEDICARE, OTHER, SELFPAY ==
[2023-03-11 16:00] LABS: HCT 47.7 % (36.0-46.0); MCH 30.9 pg (27.0-33.0); MCHC 33.5 % (32.0-36.0); MCV 92 fL (80-95); MPV 10.2 fL (8.0-11.0); Platelet Count 148 10^3/uL (130-400); RBC 5.17 10^6/uL (3.93-5.22); RDW 12.5 % (11.7-14.6); WBC 5.92 10^3/uL (4.4-10.8)
== END 2023-03-11 11:46 | disposition home or self-care (01) ==
LOC: NCHCN 11:45
PROVIDERS: PCP Nurse Practitioner Family; Visit Provider Nurse Practitioner Family
DX: J45.20 Mild intermittent asthma, uncomplicated (principal); R78.89 Finding of other specified substances, not normally found in blood
CPT/HCPCS: 85027

== ENCOUNTER 2023-03-19 03:13 | Outpatient (CLI) | payer MEDICARE, OTHER, SELFPAY ==
--- NOTE | 2023-03-21 12:59 | RT.PO.N_ITS ---
Date of service: 03/19/23 Time of Service: 23:27 Nocturnal Oximetry Note: Overnight Oximetry Amount of time analyzed: 7 hours 22 minutes, CPAP 12 on room air Number of minutes under 88%: 26 BHARGAVI: 8.3 Appearance of oxygen saturation pattern: Sharp increases and decreases c onsistent with SORAYA. Recommendation: Recommend re-titration of CPAP given BHARGAVI, or consider adding supplemental O2 for bleed and re-test Miryam Vázquez MD Pulmonary & Critical Care Medicine
== END 2023-03-19 03:14 | disposition home or self-care (01) ==
PROVIDERS: PCP Nurse Practitioner Family; Visit Provider Nurse Practitioner
DX: G47.33 Obstructive sleep apnea (adult) (pediatric) (principal)
CPT/HCPCS: 94762

== ENCOUNTER 2023-08-27 15:04 | Outpatient (REF) | payer MEDICARE, OTHER, SELFPAY ==
[2023-08-27 15:18] LABS: HCT 45.8 % (36.0-46.0); HGB 15.4 g/dL (11.2-15.7); MCH 30.9 pg (27.0-33.0); MCHC 33.6 % (32.0-36.0); MCV 92 fL (80-95); MPV 9.5 fL (8.0-11.0); Platelet Count 147 10^3/uL (130-400); RBC 4.98 10^6/uL (3.93-5.22); RDW-SD 43.6 fL; WBC 5.17 10^3/uL (4.4-10.8)
== END 2023-08-27 15:05 | disposition home or self-care (01) ==
LOC: NCHCN 15:04
PROVIDERS: PCP Nurse Practitioner Family; Visit Provider Nurse Practitioner Family
DX: R89.8 Other abnormal findings in specimens from other organs, systems and tissues
CPT/HCPCS: 85027

== ENCOUNTER 2023-09-01 15:48 | Outpatient (REF) | payer MEDICARE, OTHER, SELFPAY ==
[2023-09-01 17:27] LABS: Anion Gap 10.5 mmol/L (3-11); BUN 12 mg/dL (7-18); CO2 25.5 mmol/L (21.0-32.0); CREATININE 1.5 mg/dL (0.55-1.02); Calcium 9.5 mg/dL (8.5-10.1); Chloride 105 mmol/L (98-107); Estimated GFR 35.89 (mL/min/1.73m2); Glucose 115 mg/dL (74-106); Potassium 4.1 mmol/L (3.5-5.1); Sodium 141 mmol/L (136-145)
[2023-09-01 18:01] LABS: Bilirubin Negative (Negative); Blood Trace-intact (Negative); Clarity Clear (Clear); Glucose Negative (Negative); Ketones Negative (Negative); Leukocyte Esterase Negative (Negative); Nitrite Negative (Negative); Urobilinogen 0.2 mg/dL (Up to 0.2)
[2023-09-01 18:02] LABS: COMMENT (LAB VIEW ONLY) 49.73 mg/dL
[2023-09-01 18:08] LABS: Bacteria Rare HPF (Negative); C & S Indicated? No; Casts Negative LPF (Negative); Crystals Negative HPF (Negative); Epithelial Cells Negative HPF (Negative); Mucus Negative (Negative); RBC 0-2 HPF (0-2); WBC Negative HPF (0-5)
[2023-09-01 18:09] LABS: Microalb ug/mg Crea 111.8 ug/mg Cr
== END 2023-09-01 15:49 | disposition home or self-care (01) ==
LOC: NCHCN 15:48
PROVIDERS: PCP Nurse Practitioner Family; Visit Provider Nurse Practitioner Family
DX: N18.30 Chronic kidney disease, stage 3 unspecified (principal); R82.998 Other abnormal findings in urine
CPT/HCPCS: 80048; 81003; 81015; 82043; 82570

== ENCOUNTER → 2023-09-24 01:06 | Outpatient (CLI) | payer MEDICARE, OTHER, SELFPAY ==
--- NOTE | 2023-09-24 07:00 | DI.US_ITS ---
Exam(s) US RENAL EXAM: US RENAL CLINICAL HISTORY: monitoring renal calculi,kidney stone,n20.0 TECHNIQUE: Ultrasound of both kidneys performed using standard protocol. COMPARISON: US US THYROID from 03/06/2023 FINDINGS: RIGHT KIDNEY: Measures 7.7 cm in length. No cysts evident. Normal cortical thickness and corticomedullary different iation .No solid masses There is a small nonobstructive echogenic focus measuring 4 millimeters at the midpole cortex level LEFT KIDNEY: Measures 9.7 cm in length. No cysts evident. Normal cortical thickness and corticomedullary differen tiaion. No solids masses. There is a small 6 millimeter echogenic focus towards the upper pole, poss ibly a nonobstructive calculus. URINARY BLADDER: Prevoid volume is 95 cc Postvoid volume is cc Difficult to assess the bladder wall due to only 95 cc in the lumen. Ureterovesical jets: Both right and left jets were identified in the bladder. IMPRESSION: 1. Single small nonobstructive calculus in each kidney measuring 4 mm on the right side and 6 mm on the left side. 2. Right kidney is 2 cm smaller length than the left, measuring 7.7 cm and 9.7 cm, respectively. Ho wever, there is normal corticomedullary differentiation bilaterally. Also no prominent cortical thin monica. DATA REPOSITORY:
== END ==
PROVIDERS: PCP Nurse Practitioner Family; Visit Provider Nurse Practitioner Gerontology
DX: N20.0 Calculus of kidney (principal)
CPT/HCPCS: 76770

== ENCOUNTER → 2023-10-09 09:06 | Outpatient (BNVA) | payer MEDICARE, OTHER, SELFPAY | PROVIDERS: PCP Nurse Practitioner Family; Visit Provider Nurse Practitioner Gerontology | DX: N20.0 Calculus of kidney (principal) | CPT/HCPCS: 99213 ==

== ENCOUNTER 2023-12-01 14:09 | Outpatient (REF) | payer MEDICARE, OTHER, SELFPAY ==
[2023-12-01 15:33] LABS: BUN 26 mg/dL (7-18); CREATININE 1.4 mg/dL (0.55-1.02); Chloride 105 mmol/L (98-107); Estimated GFR 38.99 (mL/min/1.73m2); Glucose 97 mg/dL (74-106); Potassium 4.3 mmol/L (3.5-5.1); Sodium 141 mmol/L (136-145)
[2023-12-01 17:16] LABS: Hemoglobin A1C 5.9 % (<5.7)
== END 2023-12-01 14:10 | disposition home or self-care (01) ==
LOC: NCHCN 14:09
PROVIDERS: PCP Nurse Practitioner Family; Visit Provider Nurse Practitioner Family
DX: R73.9 Hyperglycemia, unspecified (principal); N18.30 Chronic kidney disease, stage 3 unspecified
CPT/HCPCS: 80048; 83036

== ENCOUNTER → 2023-12-16 10:43 | Outpatient (BNVA) | payer MEDICARE, OTHER, SELFPAY | PROVIDERS: PCP Nurse Practitioner Family; Visit Provider Internal Medicine Cardiovascular Disease | DX: I48.91 Unspecified atrial fibrillation (principal); Z95.3 Presence of xenogenic heart valve | CPT/HCPCS: 99213 ==

== ENCOUNTER → 2024-01-02 00:25 | Outpatient (CLI) | payer MEDICARE, OTHER, SELFPAY ==
--- NOTE | 2024-01-02 | DI.MAMMO_ITS ---
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 COMPARISON: 2014 through 2022 FINDINGS: The breasts are composed of mainly fatty density , Breast Density category A. No suspicious masses or suspicious microcalcifications are seen. Surgical clips and area of ovoid de nsity related to prior lumpectomy, unchanged. No skin thickening or abnormal axillary lymph nodes are seen. There has been no significant change from prior exams. IMPRESSION: BI-RADS Category 2 - Benign Findings Yearly screening mammography is recommended. Breast Density - Category A, fatty density. A negative radiographic report should not delay biopsy if a dominant or clinically suspicious mass is present. Up to ten percent of cancers are not identified on mammography. A negative report may reinforce clinical impression. Adenosis and dense breasts may obscure an underlying neoplasm. False positive reports average 6 to 10%. Patient will receive a letter notifying them of these results.
== END ==
PROVIDERS: PCP Nurse Practitioner Family; Visit Provider Nurse Practitioner Family
DX: Z12.31 Encounter for screening mammogram for malignant neoplasm of breast (principal); D05.11 Intraductal carcinoma in situ of right breast
CPT/HCPCS: 77063; 77067

== ENCOUNTER 2024-03-22 15:20 | Outpatient (REF) | payer MEDICARE, OTHER, SELFPAY ==
[2024-03-22 21:06] LABS: Hemoglobin A1C 5.7 % (<5.7)
[2024-03-22 21:09] LABS: ALT 25 U/L (14-59); AST 25 U/L (15-37); Albumin 3.7 g/dL (3.4-5.0); Alkaline Phosphatase 131 U/L (46-116); BUN 28 mg/dL (7-18); Bilirubin, Total 0.47 mg/dL (0.2-1.0); CREATININE 1.6 mg/dL (0.55-1.02); Calcium 9.2 mg/dL (8.5-10.1); Chloride 106 mmol/L (98-107); Estimated GFR 33.22 (mL/min/1.73m2); Glucose 108 mg/dL (74-106); Potassium 4.5 mmol/L (3.5-5.1); Sodium 141 mmol/L (136-145); Total Protein 7.3 g/dL (6.4-8.2)
== END 2024-03-22 15:21 | disposition home or self-care (01) ==
LOC: NCHCN 15:20
PROVIDERS: PCP Nurse Practitioner Family; Visit Provider Nurse Practitioner Family
DX: R73.03 Prediabetes (principal)
CPT/HCPCS: 80053; 83036

== ENCOUNTER 2024-05-03 02:04 | Outpatient (CLI) | payer MEDICARE, OTHER, SELFPAY ==
--- NOTE | 2024-05-03 | DI.DEXA_ITS ---
Exam(s) XR DEXA BONE DENSITY W/WO JEANNETTE EXAM: XR DEXA BONE DENSITY W/WO JEANNETTE CLINICAL HISTORY: MENOPAUSAL STATE Z78.0 TECHNIQUE: COMPARISON: CR XR DEXA BONE DENSITY W/WO JEANNETTE from 09/14/2020 FINDINGS: Lateral Spine Image: Unremarkable. No compression deformities identified. Left hip: Total T-Score: -1.1. This compares to -1.8 on the prior examination. Total Z-Score: 0.8 T- and Z-scores: Findings are consistent with osteopenia. There is no evidence of osteoporosis. Lumbar Spine: Total T-Score: -0.1. This compares to -0.8 on the prior examination. Total Z-Score: 2.4 T- and Z-scores: Within normal limits. IMPRESSION: No evidence of osteoporosis.
== END 2024-05-03 02:24 ==
LOC: DI 02:04
PROVIDERS: PCP Nurse Practitioner Family; Visit Provider Nurse Practitioner Family
DX: Z13.820 Encounter for screening for osteoporosis (principal); Z78.0 Asymptomatic menopausal state
CPT/HCPCS: 77080

== ENCOUNTER 2024-05-21 06:04 | Day surgery (SDC) | payer MEDICARE, OTHER, SELFPAY ==
--- NOTE | 2024-05-21 05:42 | W.ANESPRE ---
General Info Date of Service Date Performed: 05/21/24 Height: 5 ft 4 in Weight: 102.33 kg Body Mass Index (BMI): 38.7 Surgical Procedure: Operation Date: 05/21/24 07:40 Proposed Procedure Side Surgeon p Cataract Extraction with IOL Implant Right Fernando Delarosa MD Meds Allergies and Home Medications Allergies Allergy/AdvReac Type Severity Reaction Status Date / Time No Known Allergies Allergy Verified 05/21/24 06:28 Home Medication ?Medication ?Instructions ?Recorded simvastatin 10 mg tablet 10 mg PO QPM 06/09/18 metoprolol succinate 25 mg 50 mg (2 x 25 mg) PO DAILY #180 09/22/18 tablet,extended release 24 hr tabs diltiazem HCl 120 mg capsule,24 120 mg PO DAILY #90 caps 09/24/18 hr,extended release cholecalciferol (vitamin D3) 25 1,000 unit PO DAILY 05/28/19 mcg (1,000 unit) capsule acetaminophen 500 mg tablet 500 mg PO BID 11/25/19 (Acetaminophen Extra Strength) amoxicillin 500 mg capsule 2,000 mg PO DAILY PRN 07/24/20 meclizine 25 mg tablet 25 mg PO Q6H PRN 07/24/20 warfarin 2.5 mg tablet 5 mg PO DAILY 11/28/20 potassium citrate 99 mg capsule 198 mg PO DAILY 12/17/22 budesonide-formoterol HFA 160 1 puff inhalation BID Asthma 03/06/23 mcg-4.5 mcg/actuation aerosol inhaler (Symbicort) albuterol sulfate 90 mcg/actuation 1 - 2 inh inhalation Q6H PRN 05/14/24 aerosol inhaler (Ventolin HFA) ketorolac 0.4 % eye drops 1 drp ophthalmic (eye) TID 05/14/24 lisinopril 2.5 mg tablet 2.5 mg PO DAILY 05/14/24 ondansetron 4 mg disintegrating 4 mg PO Q6H PRN 05/14/24 tablet PFSH Active Problems Active Problems: Problem Status Onset Code Cortical age-related cataract, right eye Acute H25.011 Nuclear age-related cataract, right eye Acute H25.11 Abnormal auditory perception of both ears Acute H93.293 Multinodular thyroid Acute E04.2 Overweight Acute E66.3 Bartholin's cyst Acute N75.0 Vertigo, benign paroxysmal Acute H81.10 Onychomycosis of toenail Acute B35.1 Hydronephrosis Acute N13.30 Osteopenia Acute M85.80 Blood glucose elevated Acute R73.9 Nevus Acute D22.9 Dizziness Acute R42 Multiple thyroid nodules Acute E04.2 Kidney stone Chronic N20.0 Status post placement of implantable loop recorder Acute Z95.818 Atrial fibrillation, transient Acute I48.91 Hyperlipidemia Chronic E78.5 SORAYA (obstructive sleep apnea) Chronic G47.33 Hypertension Chronic I10 History of aortic valve replacement with bioprosthetic valve Acute Z95.3 Medical History Medical History Ductal carcinoma of breast right Subungual hematoma CKD (chronic kidney disease), stage III Blood in urine RLS (restless legs syndrome) Onychomycosis Urgency of urination Encounter for loop recorder check [employer] HTN (hypertension) Hemorrhoids Hx of rheumatic fever Left ventricular hypertrophy Atrial fibrillation Aortic stenosis Surgical History Surgical History H/O aortic valve replacement 2015, 12/03/20 History of lumpectomy of right breast (~11/2018) Tonsillectomy and adenoidectomy Colonoscopy - MAC (01/03/17) Cholecystectomy Replacement of aortic valve 04/2016 Tobacco Smoking/Tobacco Use Status: Never Alcohol Alcohol Intake: current Alcohol intake frequency: 0-2 drinks per day Alcohol type: wine Details: rare drink- Substance Use Substance use: Never Substance use type: does not use Vital Signs and Lab Results Lab Results Blood Type / Crossmatch: No Data to Display Complete Blood Count: No Data to Display Complete Metabolic Panel: No Data to Display Liver Function Panel: No Data to Display Coagulation Panel: No Data to Display Cardiac Panel: No Data to Display Arterial Blood Gas: No Data to Display Venous Blood Gas: No Data to Display Pancreas Panel: No Data to Display Thyroid Panel: No Data to Display Infectious Disease: No Data to Display Blood Cultures: No Data to Display Toxicology Panel: No Data to Display Imaging and Studies Imaging and Studies Study information below may be from another EMR and interpreted by another provider. Please see original notes in EMR for more complete details. EKG Summary: 11/24/22 Conclusion Sinus rhythm...normal P axis, V-rate 60- 99 Left bundle branch block...QRSd>120, broad/notched R ST elevation secondary to IVCD...Multiple VCG criteria. Sinus. LBBB. No significant change from previous EKG 2016. No STEMI. Echocardiogram Summary: 11/13/20 Conclusion Normal left ventricular wall thickness and chamber size. Estimated ejection fraction is 60%. There are no segmental wall motion abnormalities Normal right ventricular size and systolic function Both atria are normal in size There is a bioprosthetic aortic valve. Mean gradient is 14 mmHg. There is trace aortic regurgitation Mildly thickened mitral leaflets with trace regurgitation Structurally normal tricuspid and pulmonic valves. Mild tricuspid and pulmonic regurgitation Dilated ascending aorta measuring 3.8 cm Carotid Artery Summary:: 12/11/20 IMPRESSION: 1. Some plaque bilaterally without evidence of tight stenosis. Amount of stenosis is estimated at less than 50 percent on the left side and approximately 50 percent on the right side. 2. Antegrade flow is demonstrated in both vertebral arteries. 3. Incidentally noted are multiple nodules in both thyroid lobes. Recommend dedicated thyroid ultrasound follow-up. Pulmonary Function Summary: Date of service: 01/23/23 Time of Service: 10:08 Pulmonary Function Test Result Indications: Dyspnea Interpretation Spirometry: No airflow limitation. There was a 21% decrease in FEV1% with administration of 2.0mg/mL methacholine. Lung Volumes: Normal lung volumes Diffusion Capacity: Normal diffusion Airway Pressure: Normal airways resistance Impression Normal baseline pulmonary function but a positive methacholine challenge. This is consistent with asthma. Clinical Correlation therefore is recommended. Anesthesia Assessment and Plan Anesthesia History Personal History: No History of Anesthesia Complications Family History: No Family History of Anesthesia Complications Exercise Tolerance Exercise Tolerance: Metabolic Equivalents>4 Pertinent Negatives Pertinent Negatives: No Major Cardiovascular Symptoms or Complaints and No Major Pulmonary Symptoms or Complaints Cardiac & Pulmonary Exam Cardiac Exam: Normal S1/S2 Heart Sounds Pulmonary Exam: Clear Bilateral Breath Sounds Implantable Cardiac Device Does patient have a Pacemaker or an ICD?: No Airway Exam Known Difficult Airway: No Mallampati Class: 2 Mouth Opening: Normal (> 3cm) Thyromental Distance: Greater than 3 cm Neck Range of Motion: Full ROM Neck Circumference: Thick Teeth Condition: Normal Dentition ASA Classification ASA Score: ASA 2 Emergency Case?: No NPO Status NPO Status: NPO Clears >2 hours, Solids >8 hours Anesthesia Plan Resuscitation Status: Full Code Anesthesia Technique: MAC Anesthesia Airway Planned: Natural Airway Monitors Used: Standard Monitors
[2024-05-21 06:15] VITALS: BP 159/99; PULSE 60; RESP 18; TEMP 36.5; O2SAT 95
[2024-05-21] MEDS: Tropicam./Phenyleph. (1/2.5%) 5 ML BTL ×3 (06:31→06:47)
[2024-05-21] MEDS: Tetracaine 0.5% 4 ML BTL (07:24)
[2024-05-21] MEDS: Povidone-Iodine Ophth 30 ML BTL (07:25)
[2024-05-21 07:26] VITALS: BMI 38.7
[2024-05-21] MEDS: Balanced Salt Soln.-PLUS 500 ML BAG OP (07:32)
[2024-05-21] MEDS: Trypan Blue 0.06% 0.5 ML SYR (07:32)
[2024-05-21] MEDS: Duovisc Viscoelastic System EACH 1 EACH (07:33)
[2024-05-21] MEDS: Lidocaine 1% Pres-Free 5 ML VIAL (07:33)
[2024-05-21] MEDS: Prednisolone 1%, Moxifloxacin 0.5%, Bromfenac 0.09% 5.6ML BTL OD (07:48)
--- NOTE | 2024-05-21 07:59 | W.PM.DSUDISC ---
Date of service: 05/21/24 Time of Service: 07:59 Discharge Plan Disposition Patient Disposition: Home Discharge Details Attending Provider: Fernando Delarosa Primary Care Provider: Sandra Robbins Home Meds and New Rx's Prescriptions: No Action simvastatin 10 mg tablet 10 mg PO QPM cholecalciferol (vitamin D3) 1,000 unit capsule 1,000 unit PO DAILY budesonide-formoterol [Symbicort] 160-4.5 mcg/actuation HFA aerosol inhaler 1 puff inhalation BID metoprolol succinate 25 mg tablet extended release 24 hr 50 mg PO DAILY Qty: 180 3RF Rx Instructions: Take two of the 25mg tablets to total 50mg daily diltiazem HCl 120 mg capsule,extended release 24 hr 120 mg PO DAILY Qty: 90 3RF Rx Instructions: this replaces your Lisinopril warfarin 2.5 mg tablet 5 mg PO DAILY Patient Comments: 11/25/19 pt reports 5 and 7.5 doses. 01/19/20 pt reports 5mg PO QD. MT 11/28/20: pt reports 5mg 6 days/wk, 7.5mg 1 day/wk. potassium citrate 99 mg capsule 198 mg PO DAILY acetaminophen [Acetaminophen Extra Strength] 500 mg tablet 500 mg PO BID amoxicillin 500 mg capsule 2,000 mg PO DAILY PRN Patient Comments: dental use only Rx Instructions: take prior to dental procedure meclizine 25 mg tablet 25 mg PO Q6H PRN lisinopril 2.5 mg tablet 2.5 mg PO DAILY Patient Comments: TAKE ONE TABLET BY MOUTH EVERY DAY ketorolac 0.4 % drops 1 drp ophthalmic (eye) TID Patient Comments: INSTILL ONE DROP IN THE LEFT EYE THREE TIMES A DAY albuterol sulfate [Ventolin HFA] 90 mcg/actuation HFA aerosol inhaler 1 - 2 inh inhalation Q6H PRN ondansetron 4 mg tablet,disintegrating 4 mg PO Q6H PRN Discharge Instructions Stand Alone Forms: [facility] Post-Op [facility] ([facility]) Discharge Orders Discharge Orders: Discharge Order (Routine); Ordered 05/21/24 Ordered By: Fernando Delarosa DS: Diagnosis Discharge Diagnosis (1) Cortical age-related cataract, right eye: Status: Resolved (2) Nuclear age-related cataract, right eye: Status: Resolved
--- NOTE | 2024-05-21 07:59 | W.PM.OP ---
Date of service: 05/21/24 Time of Service: 07:59 Operative Note Operative Note DATE OF PROCEDURE: 05/21/24 PRE-OP DIAGNOSIS: Nuclear/cortical cataract, right eye POST-OP DIAGNOSIS: same PROCEDURE: Cataract extraction using phacoemulsification with intraocular lens implant, right eye SURGEON: Fernando Delarosa ANESTHESIA TYPE: Local By Surgeon and MAC Refer to Anesthesia Record ESTIMATED BLOOD LOSS: 0 PATHOLOGY: none sent COMPLICATIONS: None Patient was transported to: same day Patient's condition: stable Implants: Robert Clareon [id number] Indications: Progressive decreased vision due to cataract, right eye Procedure Description: CATARACT SURGERY OPERATIVE REPORT PREOPERATIVE DIAGNOSIS: Nuclear/cortical cataract, right eye POSTOPERATIVE DIAGNOSIS: Same OPERATION: Cataract extraction using phacoemulsification with posterior chamber intraocular lens implant, right eye. IOL: IOL [employer]ate [employer] Merchandiser/Model: Robert Clareon [id number] IOL Power: + 17.0 diopters IOL Serial Number: [id number] Optic Diameter: 6.0mm Haptic/Overall Diameter: 13.0mm PHACO INFO: [employer]urion Vision System with OZil and Active Fluidics Cumulative Dispersed Energy (CDE): 7.94 seconds SURGEON: Fernando Delarosa MD, JEREMY ANESTHESIA: Monitored Anesthesia Care (MAC), with local sub-tenon's anesthetic infiltration COMPLICATIONS: None SPECIMENS: None INDICATIONS FOR PROCEDURE: The patient is a 79-year-old lady with history of diminished visual acuity in her right eye secondary to the development of nuclear/cortical cataract. She is previously undergone cataract surgery in the left eye, following a pars plana vitrectomy for vitreous hemorrhage. She now presents for cataract surgery in the right eye. See office notes for detailed information. PROCEDURE: The correct surgical eye was identified and marked as the right eye and the pupil was dilated in the preoperative area using mydriatics and cycloplegics. The dilated pupil size was 7.0 mm. The patient elected to proceed without oral sedation. The patient was brought to the operating room where cardiopulmonary monitoring was instituted and surgical time-out was performed, confirming the correct operative eye and IOL power. Topical anesthesia was administered and ophthalmic povidone-iodine 5% was instilled into the conjunctival fornices. The david-ocular area was prepped with Betadine 10% solution and draped in the usual sterile fashion for intraocular surgery, including an aperture drape. A Tegaderm transparent film dressing was cut in half and used to cover the lashes and lid margins. Care was taken to sequester the lashes and lid margins under the Tegaderm dressing. A lid speculum was placed between the lids of the operative eye and the Robert Lux[employer] Revalia operating microscope was maneuvered into position. Solis scissors were then used to make a conjunctival buttonhole approximately 6mm posterior to the limbus in the inferonasal quadrant. Blunt dissection was carried out to expose bare sclera, and a blunt-tipped sub-tenon?s anesthesia cannula was introduced and passed posteriorly along the globe where non-preserved plain lidocaine was injected into posterior sub-Tenon?s space. A sideport knife was used to make a paracentesis port. VisionBlue was injected into the anterior chamber and allowed to sit for 30 seconds. Intraocular phenylephrine/lidocaine was injected into the anterior chamber. The anterior chamber was then filled with viscoelastic. A keratome knife was used to construct a two--plane clear corneal tunnel extending 2.0mm into clear cornea. A flap was raised on the anterior capsule and capsulorhexis forceps were used to complete a continuous curvilinear capsulorhexis of 5.0 mm. Balanced salt solution was then used to perform cortical cleaving hydrodissection and nuclear hydrodelineation until the lens could be freely rotated within the capsular bag. The lens nucleus was then disassembled and removed within the capsular bag and iris plane using phacoemulsification. Residual cortical material was removed using the I/A handpiece. The posterior capsule was carefully polished to remove as much residual lens epithelial cells as safely possible. The capsular bag was then inflated and the anterior chamber deepened with cohesive viscoelastic. The lens implant described above was inserted into the capsular bag using the Robert Autonome Injector. A Kuglen hook was used to dial the IOL into position. Residual viscoelastic was then removed first from posterior to the IOL, then from the anterior chamber using the I/A handpiece. The lens implant was noted to center nicely within the capsular bag. The incisions were stromally hydrated, and the anterior chamber was reformed using BSS. Then 0.5cc of moxifloxacin 1.0mg/ml were injected into the capsular bag and anterior chamber. The incisions were checked with a Weck spear and found to be secure. Several drops of ophthalmic povidone-iodine 5% were then applied to the eye followed by two drops of combination steroid/NSAID/antibiotic solution. The drapes were removed and a clear plastic protective eye shield was placed over the eye. The patient was then returned to Same Day Surgery in stable condition.
[2024-05-21 08:00] VITALS: BP 155/71; PULSE 61; RESP 16; TEMP 37; O2SAT 97
--- NOTE | 2024-05-21 08:13 | W.ANESPOSTOP ---
Postoperative Evaluation Date, Time and Location Date Performed: 05/21/24 Time Performed: 08:06 Patient Location: Day Surgery Unit Vital Signs Most Recent Imported Vital Signs: Most Recent Vital Signs Temp Pulse Resp BP Pulse Ox 37 C 61 16 155/71 H 97 05/21/24 08:00 05/21/24 08:00 05/21/24 08:00 05/21/24 08:00 05/21/24 08:00 Pain Score Most Recent Pain Score: Most Recent Pain Score Pain Level 0 05/21/24 08:00 Assessment Mental Status: Awake (Alert & Oriented to Patient Baseline) Airway and Respiratory Function: Patent airway with normal (patient baseline) respiratory exam Cardiovascular Function: Hemodynamically Stable Hydration Status: Adequately Hydrated Nausea & Vomiting: No Nausea or Vomiting Pain: Pt. Denies Any Pain Peripheral Nerve Block: Patient did not receive a nerve block
== END 2024-05-21 08:17 | disposition home or self-care (01) ==
PROVIDERS: PCP Nurse Practitioner Family; Visit Provider Ophthalmology
PROC: (CPT 66984; principal; 2024-05-21 07:30)
DX: H25.011 Cortical age-related cataract, right eye (principal); H25.11 Age-related nuclear cataract, right eye; I10 Essential (primary) hypertension; Z98.42 Cataract extraction status, left eye
CPT/HCPCS: 66984; 00123; V2632; J2003

== ENCOUNTER 2024-05-26 09:33 | Outpatient (REF) | payer MEDICARE, OTHER, SELFPAY ==
[2024-05-26 15:09] LABS: Anion Gap 7.9 mmol/L (3-11); BUN 29 mg/dL (7-18); CO2 28.1 mmol/L (21.0-32.0); CREATININE 1.5 mg/dL (0.55-1.02); Calcium 9.2 mg/dL (8.5-10.1); Chloride 107 mmol/L (98-107); Estimated GFR 35.67 (mL/min/1.73m2); Glucose 108 mg/dL (74-106); Potassium 4.4 mmol/L (3.5-5.1); Sodium 143 mmol/L (136-145)
== END 2024-05-26 09:34 | disposition home or self-care (01) ==
LOC: NCHCN 09:33
PROVIDERS: PCP Nurse Practitioner Family; Visit Provider Nurse Practitioner Family
DX: N18.30 Chronic kidney disease, stage 3 unspecified (principal)
CPT/HCPCS: 80048

== ENCOUNTER 2024-10-04 01:07 | Outpatient (CLI) | payer MEDICARE, OTHER, SELFPAY ==
--- NOTE | 2024-10-04 07:15 | DI.US_ITS ---
Exam(s) US RENAL EXAM: US RENAL CLINICAL HISTORY: Monitoring renal calculi,kidney stone,n20.0. TECHNIQUE: Watkins scale, color and spectral Doppler were used. COMPARISON: US US RENAL from 09/24/2022 US US RENAL from 09/24/2023 FINDINGS: Right kidney: 9.1cm Echogenicity: Normal Hydronephrosis: No Cyst or mass: No Nephrolithiasis: 4 millimeter echogenic focus mid right kidney, stone versus artifact. Small parapel phillip cysts. Left kidney: 9.8cm Echogenicity: Normal Hydronephrosis: No Cyst or mass: No Nephrolithiasis: 4 millimeter echogenic focus with a left kidney, stone versus artifact. Bladder:Normal. Both ureteral jets were visualized. Prevoid vol:480 cc Postvoid vol:0 cc IMPRESSION: Question small bilateral renal calculi versus artifacts. DATA REPOSITORY:
== END 2024-10-04 01:27 ==
PROVIDERS: PCP Nurse Practitioner Family; Visit Provider Nurse Practitioner Gerontology
DX: N20.0 Calculus of kidney (principal)
CPT/HCPCS: 76770

== ENCOUNTER → 2024-10-07 09:39 | Outpatient (BNVA) | payer MEDICARE, OTHER, SELFPAY | PROVIDERS: PCP Nurse Practitioner Family; Visit Provider Nurse Practitioner Gerontology | DX: N20.0 Calculus of kidney (principal) | CPT/HCPCS: 99213 ==

== ENCOUNTER 2025-01-06 02:12 | Outpatient (CLI) | payer MEDICARE, OTHER, SELFPAY ==
--- NOTE | 2025-01-06 | DI.MAMMO_ITS ---
Exam(s) MG MAMMO SCREENING 60 MIN DUR EXAM: MG MAMMO SCREENING 60 MIN DUR CLINICAL HISTORY: Personal h/o breast CA, screening, Z12.31 TECHNIQUE: Bilateral full field digital CC and MLO mammographic images were obtained with 3D tomosyn thesis and utilizing computer aided detection (CAD). COMPARISON: Available for comparison. FINDINGS: Masses/Architectural Distortion: No suspicious masses or areas of architectural distortion are presen t. There are stable findings of a lumpectomy in the upper outer quadrant of the right breast. There is a stable nodule in the outer retroareolar region of the left breast. Microcalcifications: No suspicious pleomorphic-type are seen. Skin Thickening/Nipple Retraction: None. IMPRESSION: 1. No significant interval change with no specific features of malignancy noted. 2. Unless there is more urgent need, screening mammography is recommended, as per [place] [employer] guidelines. 3. Findings were discussed with the patient on the date of the examination. BI-RADS Category 2 - Benign Findings Breast Density - Category A - The breast are almost entirely fatty. Breast density Category C or D implies that the patient has dense breast tissue. Dense breast tissue can make it harder to find cancer on a mammogram. Dense breast tissue is also associated with an incr eased risk of breast cancer. This information about the result of the mammogram report was provided to the patient to raise their awareness. Use this report when you speak with the patient about their risks for breast cancer, which includes their family history. At that time, you may recommend additional screening tests (Ultrasoun d or MRI) as these tests may add significant information. A negative radiographic report should not delay biopsy if a dominant or clinically suspicious mass is present. Up to ten percent of cancers are not identified on mammography. A negative report may reinforce clinical impression. Adenosis and dense breasts may obscure an underlying neoplasm. False positive reports average 6 to 10%. Patient will receive a letter notifying them of these results.
== END 2025-01-06 02:32 ==
LOC: DI 02:12
PROVIDERS: PCP Nurse Practitioner Family; Visit Provider Nurse Practitioner Family
DX: Z12.31 Encounter for screening mammogram for malignant neoplasm of breast (principal); R92.313 Mammographic fatty tissue density, bilateral breasts; D24.1 Benign neoplasm of right breast
CPT/HCPCS: 77063; 77067

== ENCOUNTER 2025-01-11 10:16 | Outpatient (CLI) | payer MEDICARE, OTHER, SELFPAY ==
--- NOTE | 2025-01-11 10:15 | RT.EKG_ITS ---
APPROVED REPORT Exam: Resting ECG Reason for Exam: follow up needed Patient Location: O HR:71 bpm ECG Measurements Heart Rate 71 AXIS [place] 206 P 0 QRSd 160 QRS -15 QT 448 T 147 QTc 487 Conclusion Sinus rhythm...normal P axis, V-rate 50- 99 Left bundle branch block...QRSd>120, broad/notched R
== END 2025-01-11 10:17 | disposition home or self-care (01) ==
LOC: DI.CARD 10:22
PROVIDERS: PCP Nurse Practitioner Family; Referring Provider Nurse Practitioner Family; Visit Provider Internal Medicine Cardiovascular Disease
DX: I10 Essential (primary) hypertension (principal); Z95.3 Presence of xenogenic heart valve; I44.7 Left bundle-branch block, unspecified
CPT/HCPCS: 93010

== ENCOUNTER → 2025-01-11 10:16 | Outpatient (BNVA) | payer MEDICARE, OTHER, SELFPAY | PROVIDERS: PCP Nurse Practitioner Family; Referring Provider Nurse Practitioner Family; Visit Provider Internal Medicine Cardiovascular Disease | DX: Z95.3 Presence of xenogenic heart valve (principal); I10 Essential (primary) hypertension; I48.91 Unspecified atrial fibrillation; Z79.01 Long term (current) use of anticoagulants | CPT/HCPCS: 99214 ==

== ENCOUNTER 2025-02-07 02:48 | Outpatient (CLI) | payer MEDICARE, OTHER, SELFPAY ==
--- NOTE | 2025-02-07 14:36 | DI.RAD_ITS ---
Exam(s) XR KNEE LT 3V AP,LAT,RENEE EXAM: XR KNEE LT 3V AP,LAT,RENEE CLINICAL HISTORY: ACUTE PAIN LT KNEE, M25.562. TECHNIQUE: 2D digital imaging was performed. Three views. COMPARISON: MR MRI L LOWER JOINT WO CONT from 02/28/2010 FINDINGS: BONES: No acute fracture is present. No bony destructive lesion is seen. There is a small exostosis at the proximal fibula. JOINTS: The knee is normally aligned. No joint effusion is seen. The femoral tibial joint spaces are maintained. The patellofemoral joint is not profiled. There is some irregularity at the articular surface of the patella. SOFT TISSUE: Normal. IMPRESSION: Patellofemoral degenerative changes. DATA REPOSITORY: RADIATION DOSE DELIVERED:
== END 2025-02-07 03:08 ==
LOC: DI 02:48
PROVIDERS: PCP Nurse Practitioner Family; Visit Provider Family Medicine
DX: M22.2X2 Patellofemoral disorders, left knee (principal)
CPT/HCPCS: 73562

== ENCOUNTER 2025-02-13 19:55 | Emergency (ER) | payer MEDICARE, OTHER, SELFPAY ==
[2025-02-13 19:48] VITALS: BP 174/77; PULSE 71; RESP 18; TEMP 36.8; O2SAT 95
--- NOTE | 2025-02-13 20:07 | DI.RAD_ITS ---
Exam(s) XR KNEE LT 4V AP,LAT,RENEE,PAT EXAM: XR KNEE LT 4V AP,LAT,RENEE,PAT CLINICAL HISTORY: L knee pain, limited flexion, pain with weightbear. TECHNIQUE: 2D digital imaging was performed of the left knee. Four images were obtained. Merchant,AP, lateral and PA tunnel views were obtained. COMPARISON: CR XR KNEE LT 3V AP,LAT,RENEE from 02/07/2025 FINDINGS: BONES: No acute fracture is present. No bony destructive lesion is seen. JOINTS: There are moderate degenerative changes seen at the patellofemoral joint characterized by joint space narrowing and osteophytes. There does appear to be a very small joint effusion. No loose body. SOFT TISSUE: Normal. IMPRESSION: 1. Degenerative changes seen at the patellofemoral joint. No acute fracture or dislocation. 2. The preliminary [facility] report was reviewed. DATA REPOSITORY: RADIATION DOSE DELIVERED:
--- NOTE | 2025-02-13 20:11 | W.ED.GENAD ---
Discharge Plan Disposition Patient Disposition: Home Discharge Details Clinical Impression: Left knee pain Primary Care Provider: Leigha Chavez ED Provider: Vera Yap Home Meds and New Rx's Prescriptions: No Action simvastatin 10 mg tablet 10 mg PO QPM cholecalciferol (vitamin D3) 1,000 unit capsule 1,000 unit PO DAILY budesonide-formoterol [Symbicort] 160-4.5 mcg/actuation HFA aerosol inhaler 1 puff inhalation BID metoprolol succinate 25 mg tablet extended release 24 hr 50 mg PO DAILY Qty: 180 3RF Rx Instructions: Take two of the 25mg tablets to total 50mg daily diltiazem HCl 120 mg capsule,extended release 24 hr 120 mg PO DAILY Qty: 90 3RF Rx Instructions: this replaces your Lisinopril warfarin 2.5 mg tablet 5 mg PO DAILY Patient Comments: 11/25/19 pt reports 5 and 7.5 doses. 01/19/20 pt reports 5mg PO QD. MT 11/28/20: pt reports 5mg 6 days/wk, 7.5mg 1 day/wk. potassium citrate 99 mg capsule 198 mg PO DAILY amoxicillin 500 mg capsule 2,000 mg PO DAILY PRN Patient Comments: dental use only Rx Instructions: take prior to dental procedure acetaminophen [Acetaminophen Extra Strength] 500 mg tablet 500 mg PO BID PRN lisinopril 2.5 mg tablet 2.5 mg PO DAILY Patient Comments: TAKE ONE TABLET BY MOUTH EVERY DAY ketorolac 0.4 % drops 1 drp ophthalmic (eye) TID Patient Comments: INSTILL ONE DROP IN THE LEFT EYE THREE TIMES A DAY albuterol sulfate [Ventolin HFA] 90 mcg/actuation HFA aerosol inhaler 1 - 2 inh inhalation Q6H PRN Discharge Instructions Additional Instructions: Call diagnostic imaging first thing in the morning to schedule an outpatient ultrasound of your leg to rule out Saeed's cyst. Please call your primary care provider tomorrow morning to set up a follow-up appointment. A referral to physical therapy or orthopedics may be indicated for further evaluation/management of your knee pain. Continue to use acetaminophen 1000 mg every 8 hours for pain control. It may be helpful to take this [id number]. Do not take this with alcohol. I encourage you to use capsaicin cream and diclofenac (Voltaren) gel per package directions for knee pain. Well supporting shoes. You may use an Cipriano bandage for support. Heat and ice may also be helpful, apply for 15 to 20 minutes at a time every couple of hours. I recommend that you use a cane or walker for support if you find you are unsteady on your feet due to knee discomfort. Return to emergency care for develop fevers associated with knee pain, new redness/swelling to your knee, inability to bend or straighten your leg, numbness to your lower leg, color change to leg, chest pains, difficulty breathing, or if you are very worried and need to be rechecked again immediately Referrals: Leigha Chavez [Primary Care Provider, Medicine] IMAGING,DIAGNOSTIC [OTHER, Unknown] HPI General Date/Time Provider Initiated Documentation: 02/13/25 20:07. HPI Narrative: Keshia is a 79-year-old female who presents to the emergency department via EMS for evaluation of left knee pain for 2 weeks. Pain described as tight at the back, extending down the calf, similar to sciatica. She has been able to walk around with a limp using a cane for the last couple of days, but today developed such discomfort with weightbearing that she was unable to walk after sitting down on the toilet. No popping or cracking during incident. Denies associated fever/chills, general malaise, change in energy level, change in p.o. intake, change in bowel or bladder function, saddle anesthesia, weakness/numbness in the leg, knee swelling/redness/tenderness. She reports tightness in the back of the knee that radiates up the calf. Knee brace and lidocaine patches have not provided good relief of symptoms. Has been taking Tylenol 1000 mg twice daily, last dose this morning. Past medical history significant for: History of aortic valve replacement on anticoagulation with warfarin, osteopenia, HTN, HLD, SORAYA, Related Data Home Medications ?Medication ?Instructions ?Recorded ?Confirmed simvastatin 10 mg tablet 10 mg PO QPM 06/09/18 02/13/25 metoprolol succinate 25 mg 50 mg (2 x 25 mg) PO DAILY #180 09/22/18 02/13/25 tablet,extended release 24 hr tabs diltiazem HCl 120 mg capsule,24 120 mg PO DAILY #90 caps 09/24/18 02/13/25 hr,extended release cholecalciferol (vitamin D3) 25 1,000 unit PO DAILY 05/28/19 02/13/25 mcg (1,000 unit) capsule amoxicillin 500 mg capsule 2,000 mg PO DAILY PRN 07/24/20 02/13/25 warfarin 2.5 mg tablet 5 mg PO DAILY 11/28/20 02/13/25 potassium citrate 99 mg capsule 198 mg PO DAILY 12/17/22 02/13/25 budesonide-formoterol HFA 160 1 puff inhalation BID Asthma 03/06/23 02/13/25 mcg-4.5 mcg/actuation aerosol inhaler (Symbicort) Held on 02/13/25. Instructions: Pt Stopped/Never Started albuterol sulfate 90 mcg/actuation 1 - 2 inh inhalation Q6H PRN 05/14/24 02/13/25 aerosol inhaler (Ventolin HFA) Held on 05/19/24. Instructions: Pt Stopped/Never Started ketorolac 0.4 % eye drops 1 drp ophthalmic (eye) TID 05/14/24 02/13/25 lisinopril 2.5 mg tablet 2.5 mg PO DAILY 05/14/24 02/13/25 acetaminophen 500 mg tablet 500 mg PO BID PRN 01/11/25 02/13/25 (Acetaminophen Extra Strength) Previous Rx's ?Medication ?Instructions ?Recorded metoprolol succinate 25 mg 50 mg (2 x 25 mg) PO DAILY #180 09/22/18 tablet,extended release 24 hr tabs diltiazem HCl 120 mg capsule,24 120 mg PO DAILY #90 caps 09/24/18 hr,extended release Allergies Allergy/AdvReac Type Severity Reaction Status Date / Time No Known Allergies Allergy Verified 02/13/25 19:55 General Stated Complaint: Orthopedic TINA: 3 Exam Narrative Exam Narrative: General Appearance: Normal. Patient is alert and oriented, no acute distress Vital signs: Hypertension noted, within patient's usual range. No tachycardia or fever. Back, Musculoskeletal: No ecchymosis, skin lesions, abrasions/lacerations. No erythema, swelling, warmth. No obvious joint laxity with anterior/posterior drawer test or varus/valgus test. Full extension of left knee, with decreased flexion to approximately 60 degrees. Station grossly intact. 5/5 muscle strength to bilateral lower extremities. No color change to extremity. Able to rotate hip and move ankle without pain. Skin: Warm and dry, no rash. Psychiatric: Normal. Course Vital Signs Vital signs: Vital Signs Temperature 36.8 C 02/13/25 19:48 Pulse 71 02/13/25 19:48 Respiratory Rate 18 02/13/25 19:48 Blood Pressure 174/77 H 02/13/25 19:48 Pulse Oximetry 95 02/13/25 19:48 Temperature 36.8 C 02/13/25 19:48 Temperature Source Oral 02/13/25 19:48 Pulse 71 02/13/25 19:48 Respiratory Rate 18 02/13/25 19:48 Blood Pressure 174/77 H 02/13/25 19:48 Pulse Oximetry 95 02/13/25 19:48 Pain Level 0 02/13/25 19:48 Medical Decision Making Initial Assessment: Left knee pain for 2 weeks, tightness in back of knee, pain radiating down calf. X-ray showed arthritis and bone spurs. No infection or septic joint suspected. History and presentation most consistent with already diagnosed arthritis/bone spurs, however Saeed's cyst also possible. No red flags concerning for septic joint/infectious process or DVT. ED Course: - Administered Tylenol 1000 mg. Patient reports good improvement of symptoms, now able to flex heel without pain in the knee. - Evaluated knee, no red flags concerning for infection or septic joint. - Discussed walker use. I independently interpreted the following tests: Left knee x-ray, no acute abnormalities noted. This was confirmed by radiologist. Final Assessment: Left knee pain, suspected Saeed's cyst. Administered Tylenol, no infection or septic joint. Order ultrasound outpatient Clinical Impression: - Left knee pain likely related to arthritis - Suspected Saeed's cyst Disposition: - Discharge home - Advised walker or cane use if additional support needed - Return if pain worsens or new symptoms - Follow-up with PCP, possibly orthopedics Patient Education: Advised walker use, pain management with Tylenol, informed about ultrasound appointment. Patient consented to the use of JULIAN Imaging Data Radiologic Study: Radiologist's impression: PROCEDURE INFORMATION: Exam: XR Left Knee Exam date and time: 02/13/2025 8:20 PM Age: 79 years old Clinical indication: Left; L knee pain, limited flexion, pain with weightbearing TECHNIQUE: Imaging protocol: Radiologic exam of the left knee. Views: 4 or more views. COMPARISON: CR XR KNEE LT 3V AP,LAT,RENEE 02/07/2025 2:32 PM FINDINGS: Bones/joints: Moderate patellofemoral joint degenerative arthritis. Small joint effusion. Mild medial joint compartment degenerative narrowing. No fracture. No dislocation. Soft tissues: Periarticular soft tissues are unremarkable. No significant swelling. No gas. No foreign body. IMPRESSION: 1. Moderate degenerative arthritis. 2. Minor nonspecific joint effusion. 3. No acute soft tissue pathology. 4. No fractures. PFSH All Active Problems (Updated 05/21/24 @ 07:59 by Fernando Delarosa MD) Left knee pain (Acute) Abnormal auditory perception of both ears (Acute) Multinodular thyroid (Acute) Overweight (Acute) Bartholin's cyst (Acute) Vertigo, benign paroxysmal (Acute) Onychomycosis of toenail (Acute) Hydronephrosis (Acute) Osteopenia (Acute) Blood glucose elevated (Acute) Nevus (Acute) Dizziness (Acute) Multiple thyroid nodules (Acute) Kidney stone (Chronic) Status post placement of implantable loop recorder (Acute) ILR - Medtronic Atrial fibrillation, transient (Acute) Hyperlipidemia (Chronic) Pt. will be starting her XRT for breast ca next week. SORAYA (obstructive sleep apnea) (Chronic) Hypertension (Chronic) History of aortic valve replacement with bioprosthetic valve (Acute) 12/03/20 Medical History (Updated 02/13/25 @ 22:13 by Vera Dominguez) Ductal carcinoma of breast right Subungual hematoma CKD (chronic kidney disease), stage III Blood in urine RLS (restless legs syndrome) Onychomycosis Urgency of urination Encounter for loop recorder check Medtronic LINQ HTN (hypertension) Hemorrhoids Hx of rheumatic fever Left ventricular hypertrophy Atrial fibrillation Aortic stenosis Surgical History (Updated 05/21/24 @ 07:59 by Fernando Delarosa MD) H/O aortic valve replacement 12/03/20 History of lumpectomy of right breast (~11/2018) Tonsillectomy and adenoidectomy Colonoscopy - MAC (01/03/17) Cholecystectomy Replacement of aortic valve 04/2016 Social History Smoking/Tobacco Use Status: Never Smoking risk assessment performed?: Yes Alcohol Intake: current Alcohol Intake frequency: 0-2 drinks per day Alcohol type: wine Details: rare drink- Drug use: Never Substance use type: does not use Housing: condominium What type of physical activity do you participate in: walking Duration: < 15 minutes/day Frequency: 1-2 times per week Do you feel safe at home: Yes Do you feel safe in your relationship?: Yes PAWSS Have you Been Recently Intoxicated or Drunk Within the Last 30 days?: No Have you Ever Experienced Previous Episodes of Alcohol Withdrawal?: No Have you ever Experienced Withdrawal Seizures?: No Have you ever Experienced Delirium Tremens(DT)s?: No Have you ever undergone Alcohol Rehabilitation Treatment (i.e, inpt ot outpatient treatment programs)?: No Have you ever Experienced Blackouts?: No Have you ever Combined Alcohol with other Downers within the last 90 days?: No Have you ever Combined Alcohol with any other Substance of Abuse during the last 90 days?: No Positive Blood Alcohol level on Presentation? [PCS.BAL]: No Evidence of Increased Autonomic Activity (i.e. HR>120, tremor, sweating, agitation, nausea)?: No Result: 0
[2025-02-13] MEDS: Acetaminophen 500 MG TAB 1000 MG PO (20:12)
[2025-02-13 21:08] VITALS: BP 169/79; PULSE 64; RESP 18; O2SAT 97
--- NOTE | 2025-02-13 21:51 | NUR.NOTE ---
PT ambulated 20 feet with walker. PT was able to bear weight on the leg. PT is having mild pain with ambluation. Nursing Note:
--- NOTE | 2025-02-13 22:05 | DI.[facility]AD_ITS ---
PROCEDURE INFORMATION: Exam: XR Left Knee Exam date and time: 02/13/2025 8:20 PM Age: 79 years old Clinical indication: Left; L knee pain, limited flexion, pain with weightbearing TECHNIQUE: Imaging protocol: Radiologic exam of the left knee. Views: 4 or more views. COMPARISON: CR XR KNEE LT 3V AP,LAT,RENEE 02/07/2025 2:32 PM FINDINGS: Bones/joints: Moderate patellofemoral joint degenerative arthritis. Small joint effusion. Mild medial joint compartment degenerative narrowing. No fracture. No dislocation. Soft tissues: Periarticular soft tissues are unremarkable. No significant swelling. No gas. No foreign body. IMPRESSION: 1. Moderate degenerative arthritis. 2. Minor nonspecific joint effusion. 3. No acute soft tissue pathology. 4. No fractures. Dictated and Authenticated by: Lionel Olmos MD. Orderin Dwain Gamez MD
[2025-02-13 22:20] VITALS: BP 169/79; PULSE 64; RESP 18; O2SAT 97
== END 2025-02-13 22:20 | disposition home or self-care (01) ==
PROVIDERS: Emergency Provider Nurse Practitioner Family; PCP Nurse Practitioner Family
DX: M25.562 Pain in left knee (principal); I12.9 Hypertensive chronic kidney disease with stage 1 through stage 4 chronic kidney disease, or unspecified chronic kidney disease; N18.30 Chronic kidney disease, stage 3 unspecified; E78.5 Hyperlipidemia, unspecified; I48.91 Unspecified atrial fibrillation; Z95.2 Presence of prosthetic heart valve; Z79.01 Long term (current) use of anticoagulants
CPT/HCPCS: 99283; 73564

== ENCOUNTER 2025-02-16 01:31 | Outpatient (CLI) | payer MEDICARE, OTHER, SELFPAY ==
--- NOTE | 2025-02-16 10:00 | DI.US_ITS ---
Exam(s) US SOFT TISSUE EXTREMITY EXAM: US SOFT TISSUE EXTREMITY CLINICAL HISTORY: LT KNEE PAIN POSTERIOR, CONCERN FOR BAKERS CYST, M25.562. TECHNIQUE: Ultrasound was performed using standard protocol. COMPARISON: No exams were available for comparison FINDINGS: Sonographic assessment utilizing grayscale and color Doppler imaging was performed and targeted to the area of clinical concern. No sonographic evidence of a cystic or solid mass. No evidence of a Saeed cyst. IMPRESSION: No sonographic evidence of a Saeed cyst. DATA REPOSITORY:
== END 2025-02-16 01:51 ==
LOC: DI 01:31
PROVIDERS: PCP Nurse Practitioner Family; Visit Provider Nurse Practitioner Family
DX: M25.562 Pain in left knee (principal)
CPT/HCPCS: 76881